=== PATIENT | male | born 1970 | race Caucasian/White ===

== ENCOUNTER 2016-12-19 14:02 | Inpatient (IN) | payer OTHER ==
--- NOTE | 2016-12-19 14:44 | ED ---
Recheck HPI <Jesus Rothman - Last Filed: 12/19/16 16:18> - General Source: patient, RN notes reviewed Mode of arrival: ambulatory Limitations: no limitations <Mila Moore - Last Filed: 12/19/16 20:21> - General Chief Complaint: Recheck/Abnormal Lab/Rx Stated Complaint: insect bites infection Time Seen by Provider: 12/19/16 14:14 - History of Present Illness Initial Comments: Patient is a 46-year-old male presents to the emergency room for evaluation left lower abdomen abscess. Patient states he's power washing his deck about a week ago he was bit by multiple spiders. Patient states she has spider bite on his left thigh, right knee, right upper abdomen and left lower abdomen. Patient states that he followed up with his primary care provider who had him follow-up with Dr. Bay. Patient states he went to Dr. Bay's office on Sunday where he had most of the wounds incised and drained. Patient states the largest bite was on his left lower abdomen. Patient states he's been placed on extra strength Bactrim. Patient states he has a follow-up appointment with Dr. Bay tomorrow. Patient states when he woke up this morning he was feeling nauseous, feverish and not himself. Patient states that the abscess on his left lower abdomen is still continuing to drain pus and having increasing pain. (Mila Moore) - Related Data Home Medications Medication Instructions Recorded Confirmed Lisinopril [Prinivil] 10 mg PO DAILY 12/19/16 12/19/16 Multivitamins, Thera [Multivitamin 1 tab PO DAILY 12/19/16 12/19/16 (formulary)] [place]-3/Dha/Epa/Fish Oil [Fish Oil 2 cap PO DAILY 12/19/16 12/19/16 1,000 mg Softgel] Sulfamethox-Tmp 800-160Mg [Bactrim 2 tab PO Q12HR 12/19/16 12/19/16 DS 800-160 mg] Allergies Allergy/AdvReac Type Severity Reaction Status Date / Time No Known Allergies Allergy Verified 12/19/16 14:54 Review of Systems ROS Other: All systems not noted in ROS Statement are negative. <Jesus Rothman - Last Filed: 12/19/16 16:18> ROS Other: All systems not noted in ROS Statement are negative. <Mila Moore - Last Filed: 12/19/16 20:21> ROS Statement: Those systems with pertinent positive or pertinent negative responses have been documented in the HPI. Past Medical History Past Medical History: Hypertension History of Any Multi-Drug Resistant Organisms: None Reported Past Surgical History: No Surgical Hx Reported Past Psychological History: No Psychological Hx Reported Smoking Status: Never smoker Past Alcohol Use History: Occasional Past Drug Use History: None Reported - Past Family History Father Additional Family Medical History / Comment(s): FROM LUNG DISEASE Mother Family Medical History: Cancer Additional Family Medical History / Comment(s): -LEUKEMIA <Mila Moore - Last Filed: 12/19/16 20:21> General Exam <Jesus Rothman - Last Filed: 12/19/16 16:18> Limitations: no limitations General appearance: alert, in no apparent distress Head exam: Present: atraumatic, normocephalic, normal inspection Eye exam: Present: normal appearance ENT exam: Present: normal exam Neck exam: Present: normal inspection Respiratory exam: Present: normal lung sounds bilaterally. Absent: respiratory distress Cardiovascular Exam: Present: regular rate, normal rhythm, normal heart sounds Extremities exam: Present: normal inspection Back exam: Present: normal inspection Neurological exam: Present: alert, oriented X3, CN II-XII intact, normal gait Skin exam: Present: other (Healing lesions drained spider bites over the right medial knee, left upper thigh. Healing drained abscess over her right upper abdomen. Large open abscess over left lower abdomen with pus drainage and surrounding erythema.) <Mila Moore - Last Filed: 12/19/16 20:21> - General Exam Comments Initial Comments: Sitting in exam room, no acute distress. (Mila Moore) Medical Decision Making - Lab Data Result diagrams: 12/19/16 14:52 12/19/16 14:52 <Jesus Rothman - Last Filed: 12/19/16 16:18> - Lab Data Result diagrams: 12/19/16 14:52 12/19/16 14:52 <Mila Moore - Last Filed: 12/19/16 20:21> - Medical Decision Making The patient was seen and examined. All diagnostics were reviewed. Case is discussed with Dr. Bay and he is agreeable to admission with Dr. Courtney to consult. Case is discussed with the PA and agree with the findings as documented. (Jesus Rothman) - Lab Data Lab Results 12/19/16 12/19/16 12/19/16 Range/Units 14:52 14:52 14:52 WBC 8.9 (3.8-10.6) k/uL RBC 5.35 (4.30-5.90) m/uL Hgb 15.7 (13.0-17.5) gm/dL Hct 44.3 (39.0-53.0) % MCV 82.8 (80.0-100.0) fL MCH 29.3 (25.0-35.0) pg MCHC 35.4 (31.0-37.0) g/dL RDW 12.3 (11.5-15.5) % Plt Count 273 (150-450) k/uL Neutrophils % 86 % Lymphocytes % 3 % Monocytes % 8 % Eosinophils % 1 % Basophils % 1 % Neutrophils # 7.7 (1.3-7.7) k/uL Lymphocytes # 0.3 L (1.0-4.8) k/uL Monocytes # 0.7 (0-1.0) k/uL Eosinophils # 0.1 (0-0.7) k/uL Basophils # 0.1 (0-0.2) k/uL Sodium 136 L (137-145) mmol/L Potassium 4.6 (3.5-5.1) mmol/L Chloride 101 (98-107) mmol/L Carbon Dioxide 20 L (22-30) mmol/L Anion Gap 15 mmol/L BUN 17 (9-20) mg/dL Creatinine 1.00 (0.66-1.25) mg/dL Est GFR (MDRD) Af Amer >60 (>60 ml/min/1.73 sqM) Est GFR (MDRD) Non-Af >60 (>60 ml/min/1.73 sqM) Glucose 100 H (74-99) mg/dL Plasma Lactic Acid Marvel 1.8 (0.7-2.0) mmol/L Calcium 10.0 (8.4-10.2) mg/dL Total Bilirubin 0.5 (0.2-1.3) mg/dL AST 30 (17-59) U/L ALT 50 (21-72) U/L Alkaline Phosphatase 82 (38-126) U/L Total Protein 7.8 (6.3-8.2) g/dL Albumin 4.6 (3.5-5.0) g/dL Disposition <Jesus Rothman - Last Filed: 12/19/16 16:18> Decision Date: 12/19/16 <Mila Moore - Last Filed: 12/19/16 20:21> Clinical Impression: Failure of outpatient treatment, Abdominal abscess Disposition: ADMITTED IP TO THIS HOSP Condition: Stable
[2016-12-19 15:21] LABS: Basophils # (A) 0.1 k/uL (0-0.2); Basophils % (A) 1 %; CH 30.1; CHCM 36.4; Eosinophils # (A) 0.1 k/uL (0-0.7); Eosinophils % (A) 1 %; HCT 44.3 % (39.0-53.0); HDW 2.75; HGB 15.7 gm/dL (13.0-17.5); Luc # (Auto) 0.16; Luc % (Auto) 2; Lymphocytes # (A) 0.3 k/uL (1.0-4.8); Lymphocytes % (A) 3 %; MCH 29.3 pg (25.0-35.0); MCHC 35.4 g/dL (31.0-37.0); MCV 82.8 fL (80.0-100.0); Mean Platelet Volume 6.5; Monocytes # (A) 0.7 k/uL (0-1.0); Monocytes % (A) 8 %; Neutrophils # (A) 7.7 k/uL (1.3-7.7); Neutrophils % (A) 86 %; RBC 5.35 m/uL (4.30-5.90); RDW 12.3 % (11.5-15.5); WBC 8.9 k/uL (3.8-10.6); WBC (Perox) 9.31
[2016-12-19 15:22] LABS: ALT 50 U/L (21-72); AST 30 U/L (17-59); Alkaline Phosphatase 82 U/L (38-126); Anion Gap 15 mmol/L; Blood Urea Nitrogen 17 mg/dL (9-20); Carbon Dioxide 20 mmol/L (22-30); Chloride 101 mmol/L (98-107); Glucose 100 mg/dL (74-99); Non-African American GFR(MDRD) >60 (>60 ml/min/1.73 sqM); Potassium 4.6 mmol/L (3.5-5.1); Sodium 136 mmol/L (137-145); Total Bilirubin 0.5 mg/dL (0.2-1.3); Total Protein 7.8 g/dL (6.3-8.2)
[2016-12-19] MEDS ORDERED: NALOXONE 0.4 MG/ML 1 ML VIAL IV PRN (16:21)
[2016-12-19] MEDS ORDERED: ONDANSETRON 4 MG/2 ML VIAL IVP PRN (16:21)
[2016-12-19] MEDS ORDERED: MORPHINE SULFATE 4 MG/ML SYRINGE IV PRN (16:21)
[2016-12-19] MEDS ORDERED: IV VANCOMYCIN PER PHARMACY 1 EACH MISC MISCELLANE PRN (16:24)
[2016-12-19] MEDS ORDERED: AMPICILLIN-SULBACTAM 3 GM in SODIUM CHLORIDE 0.9% 100 ML IVPB STA (16:26)
[2016-12-19] MEDS: SODIUM CHLORIDE 0.9% 1,000 ML IV SCH (16:39)
[2016-12-19] MEDS ORDERED: VANCOMYCIN 2,000 MG in SODIUM CHLORIDE 0.9% 500 ML IVPB ONE (17:00)
[2016-12-19] MEDS: KETOROLAC 30 MG/ML 1 ML VIAL IVP PRN (18:32)
[2016-12-19] MEDS: ceFAZolin 2 GM in SODIUM CHLORIDE 0.9% 100 ML IVPB SCH (22:36)
[2016-12-19] MEDS: VANCOMYCIN 1,750 MG in SODIUM CHLORIDE 0.9% 250 ML IVPB SCH (23:58)
[2016-12-20] MEDS: SODIUM CHLORIDE 0.9% 1,000 ML IV SCH ×3 (03:56→21:12)
[2016-12-20] MEDS: ceFAZolin 2 GM in SODIUM CHLORIDE 0.9% 100 ML IVPB SCH ×4 (03:58→21:11)
[2016-12-20] MEDS: LISINOPRIL 10 MG TAB PO SCH (08:56)
--- NOTE | 2016-12-20 09:34 | P.GSHP ---
History of Present Illness H&P Date: 12/20/16 Chief Complaint: Abscess Patient is well-known to our service. He was seen in the office last week. He thought that he suffered from a spider bite while washing his outdoor deck. He had read tender nodular areas involving the right abdomen, left abdomen, and bilateral lower extremities. The left lower abdominal wall area was the most impressive. In the office and incision and drainage was performed of the left lower abdominal wall, the right abdominal wall, and the left thigh abscess. Cultures were taken and these revealed staph aureus. He had already been taking Bactrim. Apparently over the weekend he experienced more malaise and some fevers. The left lower abdominal wall site was not improving to the degree that the other 2 sites were. He came to the hospital yesterday. He had a low-grade fever. His white blood cell count was normal. He was admitted for IV antibiotics. Consultation to Dr. Courtney is pending at this time. He does state he feels better today than he did yesterday. - Review of Systems Comment: The patient denies any acute changes in his vision or hearing, no dysphagia or odynophagia, no chest pain or shortness of breath, no dysuria or hematuria, no headache, no runny nose, no rectal bleeding or melena, no unexplained weight loss Past Medical History Past Medical History: Hypertension History of Any Multi-Drug Resistant Organisms: None Reported Past Surgical History: No Surgical Hx Reported Additional Past Surgical History / Comment(s): LT CHEST BENIGN MASS REMOVED, LACERATION TO SCALP/SUTURED(NO SX) Past Anesthesia/Blood Transfusion Reactions: Motion Sickness Past Psychological History: No Psychological Hx Reported Additional Psychological History / Comment(s): 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 PT SERVED IN THE [employer] AND IS IN THE [employer]. PT LIVES WITH HIS AND 2 CHLDREN. 1 DOG, 2 CATS. NO OUTSIDE SERVICES AND NO MEDICAL EQUIPMENT. Smoking Status: Never smoker Past Alcohol Use History: Occasional Past Drug Use History: None Reported - Past Family History Father Additional Family Medical History / Comment(s): FROM LUNG DISEASE Mother Family Medical History: Cancer Additional Family Medical History / Comment(s): -LEUKEMIA Medications and Allergies Home Medications Medication Instructions Recorded Confirmed Type Lisinopril [Prinivil] 10 mg PO DAILY 12/19/16 12/19/16 History Multivitamins, Thera [Multivitamin 1 tab PO DAILY 12/19/16 12/19/16 History (formulary)] [place]-3/Dha/Epa/Fish Oil [Fish Oil 2 cap PO DAILY 12/19/16 12/19/16 History 1,000 mg Softgel] Sulfamethox-Tmp 800-160Mg [Bactrim 2 tab PO Q12HR 12/19/16 12/19/16 History DS 800-160 mg] Allergies Allergy/AdvReac Type Severity Reaction Status Date / Time No Known Allergies Allergy Verified 12/19/16 14:54 Surgical - Exam Vital Signs Temp Pulse Resp BP Pulse Ox 98.8 F 108 H 20 144/86 98 12/19/16 14:04 12/19/16 14:04 12/19/16 14:04 12/19/16 14:04 12/19/16 14:04 Physical exam: General: Well-developed, well-nourished HEENT: Normocephalic, sclerae nonicteric Abdomen: Left lower abdominal wall with a erythematous region that is mildly tender, some fluctuance noted, 2 openings in the skin are identified with some relatively ischemic appearing fat noted, right abdominal wall with decreased erythema and minimal tenderness at that location, no drainage from that location Extremities: Left thigh proximally was some induration, no definite fluctuance, in improved erythema Neuro: Alert and oriented Results - Labs 12/19/16 14:52 12/19/16 14:52 Abnormal Lab Results - Last 24 Hours (Table) 12/19/16 12/19/16 Range/Units 14:52 14:52 Lymphocytes # 0.3 L (1.0-4.8) k/uL Sodium 136 L (137-145) mmol/L Carbon Dioxide 20 L (22-30) mmol/L Glucose 100 H (74-99) mg/dL Diabetes panel 12/19/16 Range/Units 14:52 Sodium 136 L (137-145) mmol/L Potassium 4.6 (3.5-5.1) mmol/L Chloride 101 (98-107) mmol/L Carbon Dioxide 20 L (22-30) mmol/L BUN 17 (9-20) mg/dL Creatinine 1.00 (0.66-1.25) mg/dL Glucose 100 H (74-99) mg/dL Calcium 10.0 (8.4-10.2) mg/dL AST 30 (17-59) U/L ALT 50 (21-72) U/L Alkaline Phosphatase 82 (38-126) U/L Total Protein 7.8 (6.3-8.2) g/dL Albumin 4.6 (3.5-5.0) g/dL Calcium panel 12/19/16 Range/Units 14:52 Calcium 10.0 (8.4-10.2) mg/dL Albumin 4.6 (3.5-5.0) g/dL Pituitary panel 12/19/16 Range/Units 14:52 Sodium 136 L (137-145) mmol/L Potassium 4.6 (3.5-5.1) mmol/L Chloride 101 (98-107) mmol/L Carbon Dioxide 20 L (22-30) mmol/L BUN 17 (9-20) mg/dL Creatinine 1.00 (0.66-1.25) mg/dL Glucose 100 H (74-99) mg/dL Calcium 10.0 (8.4-10.2) mg/dL Adrenal panel 12/19/16 Range/Units 14:52 Sodium 136 L (137-145) mmol/L Potassium 4.6 (3.5-5.1) mmol/L Chloride 101 (98-107) mmol/L Carbon Dioxide 20 L (22-30) mmol/L BUN 17 (9-20) mg/dL Creatinine 1.00 (0.66-1.25) mg/dL Glucose 100 H (74-99) mg/dL Calcium 10.0 (8.4-10.2) mg/dL Total Bilirubin 0.5 (0.2-1.3) mg/dL AST 30 (17-59) U/L ALT 50 (21-72) U/L Alkaline Phosphatase 82 (38-126) U/L Total Protein 7.8 (6.3-8.2) g/dL Albumin 4.6 (3.5-5.0) g/dL Assessment and Plan (1) Abdominal wall abscess Narrative/Plan: The patient I discussed the options. We'll proceed with incision and drainage of the left lower quadrant abdominal wall abscess. During the operation I will cleanse the right-sided abdominal wall abscess site and the left thigh abscess site. We may perform a simple incision and drainage at those locations as well. A debridement of the left lower abdominal wall site will take place. Proper packing will be performed. The risks of bleeding, infection, possible need for additional procedure, poor wound healing, and scarring were discussed. He understands and wishes to proceed. Status: Acute
[2016-12-20 09:40] LABS: ALT 35 U/L (21-72); AST 22 U/L (17-59); Alkaline Phosphatase 64 U/L (38-126); Anion Gap 11 mmol/L; Blood Urea Nitrogen 23 mg/dL (9-20); Calcium 8.9 mg/dL (8.4-10.2); Carbon Dioxide 24 mmol/L (22-30); Chloride 102 mmol/L (98-107); Glucose 116 mg/dL (74-99); Non-African American GFR(MDRD) >60 (>60 ml/min/1.73 sqM); Potassium 4.9 mmol/L (3.5-5.1); Sodium 137 mmol/L (137-145); Total Bilirubin 0.6 mg/dL (0.2-1.3); Total Protein 6.8 g/dL (6.3-8.2)
--- NOTE | 2016-12-20 09:57 | P.CONS ---
History of Present Illness - Reason for Consult Consult date: 12/20/16 abscess - History of Present Illness This is a 46-year-old male who gives history that on the weekend of December 09, he was power washing his tach and he remembers seen spiders and he thinks he may have disturbed Anastas spiders. He does not recall ever being bitten by a spider but when he finished and went in the house at the end of the day, his 's estimate the rash was from and they assumed it was from the spiders. This was located on the upper legs bilaterally and abdomen. He went to see his primary care physician, Dr. Sheikh, and was placed on Bactrim double strength 2 tablets twice daily which she states he has been taking as directed. He saw Dr. li on , December 14, and underwent I&D and was continued on Bactrim. He states that yesterday he was not feeling well and he started having fever and chills and nausea. He was working in [employer] and his coworker drove him back home and he came right into the hospital for evaluation. He was found awake, 8.9, GFR is greater than 60, albumin 4.6. Blood cultures status received. He received 1 dose of Unasyn in the emergency center and then was started on cefazolin and vancomycin. His wound culture from December 14 showing MSSA. He states that he is feeling much better in general tends he was admitted. He has been seen by Dr. li with plan for I&D today in the OR. Review of Systems All systems: negative Constitutional: Reports chills, Reports fatigue, Reports fever, Reports lethargy Eyes: denies blurred vision, denies pain Ears, nose, mouth and throat: Denies headache, Denies sore throat Cardiovascular: Denies chest pain, Denies shortness of breath Respiratory: Denies cough Gastrointestinal: Reports nausea, Denies abdominal pain, Denies diarrhea, Denies vomiting Musculoskeletal: Denies myalgias Integumentary: Reports wounds, Denies pruritus, Denies rash Neurological: Denies numbness, Denies weakness Psychiatric: Denies anxiety, Denies depression Endocrine: Denies fatigue, Denies weight change Past Medical History Past Medical History: Hypertension History of Any Multi-Drug Resistant Organisms: None Reported Past Surgical History: No Surgical Hx Reported Additional Past Surgical History / Comment(s): LT CHEST BENIGN MASS REMOVED, LACERATION TO SCALP/SUTURED(NO SX), I&D of abdominal soft tissue abscesses Past Anesthesia/Blood Transfusion Reactions: Motion Sickness Past Psychological History: No Psychological Hx Reported Additional Psychological History / Comment(s): 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 PT SERVED IN THE [employer] AND SERVED 2 TOURS WITH [employer] IN [place]. HE IS NOW IN THE [employer]. PT LIVES WITH HIS AND 2 CHLDREN. 1 DOG, 2 CATS. NO OUTSIDE SERVICES AND NO MEDICAL EQUIPMENT. They camp frequently. Smoking Status: Never smoker Past Alcohol Use History: Occasional Past Drug Use History: None Reported - Past Family History Father Additional Family Medical History / Comment(s): FROM LUNG DISEASE Mother Family Medical History: Cancer Additional Family Medical History / Comment(s): -LEUKEMIA Medications and Allergies Home Medications Medication Instructions Recorded Confirmed Type Lisinopril [Prinivil] 10 mg PO DAILY 12/19/16 12/19/16 History Multivitamins, Thera [Multivitamin 1 tab PO DAILY 12/19/16 12/19/16 History (formulary)] [place]-3/Dha/Epa/Fish Oil [Fish Oil 2 cap PO DAILY 12/19/16 12/19/16 History 1,000 mg Softgel] Sulfamethox-Tmp 800-160Mg [Bactrim 2 tab PO Q12HR 12/19/16 12/19/16 History DS 800-160 mg] Allergies Allergy/AdvReac Type Severity Reaction Status Date / Time No Known Allergies Allergy Verified 12/19/16 14:54 Physical Exam Vitals: Vital Signs Temp Pulse Pulse Resp BP BP Pulse Ox 12/20/16 07:00 99.4 F 81 18 121/65 93 L 12/19/16 23:00 97.8 F 88 16 116/56 92 L 12/19/16 17:29 98.9 F 108 H 19 147/81 94 L 12/19/16 16:43 100.4 F H 99 18 149/82 94 L 12/19/16 14:04 98.8 F 108 H 20 144/86 98 Intake and Output 12/19/16 12/20/16 12/20/16 22:59 06:59 14:59 Intake Total 100 0 Balance 100 0 Intake: Oral 100 0 Other: Voiding Method Toilet # Voids 2 1 Gen: This is a 46-year-old male. He is laying in bed and appears to be in no acute distress. HEENT: Head is atraumatic, normocephalic. Pupils equal, round. Sclerae is anicteric. NECK: Supple. No JVD. No lymphadenopathy. No thyromegaly. LUNGS: Clear to auscultation. No wheezes or rhonchi. No intercostal retractions. HEART: Regular rate and rhythm. No murmur. ABDOMEN: Soft. Bowel sounds are present. Abscess to the right lower quadrant with sanguinous drainage with surrounding erythema and edema and tenderness. Abscess to the right lower quadrant with no active drainage and surrounding erythema. Wound to the left upper thigh laterally with serosanguineous drainage , surrounding erythema, mild edema and tenderness. EXTREMITIES: No pedal edema. No calf tenderness. Dorsalis pedis +2 bilaterally there is several healing wounds to the upper or lower extremities with no surrounding erythema and no active drainage. NEUROLOGICAL: Patient is awake, alert and oriented x3. Cranial nerves 2 through 12 are grossly intact. Results Results: Laboratory Results WBC 8.9 k/uL (3.8-10.6) 12/19/16 14:52 RBC 5.35 m/uL (4.30-5.90) 12/19/16 14:52 Hgb 15.7 gm/dL (13.0-17.5) 12/19/16 14:52 Hct 44.3 % (39.0-53.0) 12/19/16 14:52 MCV 82.8 fL (80.0-100.0) 12/19/16 14:52 MCH 29.3 pg (25.0-35.0) 12/19/16 14:52 MCHC 35.4 g/dL (31.0-37.0) 12/19/16 14:52 RDW 12.3 % (11.5-15.5) 12/19/16 14:52 Plt Count 273 k/uL (150-450) 12/19/16 14:52 Neutrophils % 86 % 12/19/16 14:52 Lymphocytes % 3 % 12/19/16 14:52 Monocytes % 8 % 12/19/16 14:52 Eosinophils % 1 % 12/19/16 14:52 Basophils % 1 % 12/19/16 14:52 Neutrophils # 7.7 k/uL (1.3-7.7) 12/19/16 14:52 Lymphocytes # 0.3 k/uL (1.0-4.8) L 12/19/16 14:52 Monocytes # 0.7 k/uL (0-1.0) 12/19/16 14:52 Eosinophils # 0.1 k/uL (0-0.7) 12/19/16 14:52 Basophils # 0.1 k/uL (0-0.2) 12/19/16 14:52 Sodium 137 mmol/L (137-145) 12/20/16 08:28 Potassium 4.9 mmol/L (3.5-5.1) 12/20/16 08:28 Chloride 102 mmol/L (98-107) 12/20/16 08:28 Carbon Dioxide 24 mmol/L (22-30) 12/20/16 08:28 Anion Gap 11 mmol/L 12/20/16 08:28 BUN 23 mg/dL (9-20) H 12/20/16 08:28 Creatinine 1.12 mg/dL (0.66-1.25) 12/20/16 08:28 Est GFR (MDRD) Af Amer >60 (>60 ml/min/1.73 sqM) 12/20/16 08:28 Est GFR (MDRD) Non-Af >60 (>60 ml/min/1.73 sqM) 12/20/16 08:28 Glucose 116 mg/dL (74-99) H 12/20/16 08:28 Plasma Lactic Acid Marvel 1.8 mmol/L (0.7-2.0) 12/19/16 14:52 Calcium 8.9 mg/dL (8.4-10.2) 12/20/16 08:28 Total Bilirubin 0.6 mg/dL (0.2-1.3) 12/20/16 08:28 AST 22 U/L (17-59) 12/20/16 08:28 ALT 35 U/L (21-72) 12/20/16 08:28 Alkaline Phosphatase 64 U/L (38-126) 12/20/16 08:28 Total Protein 6.8 g/dL (6.3-8.2) 12/20/16 08:28 Albumin 3.8 g/dL (3.5-5.0) 12/20/16 08:28 CBC & Chem 7: 12/19/16 14:52 12/20/16 08:28 Labs: Abnormal Lab Results - Last 24 Hours (Table) 12/19/16 12/19/16 Range/Units 14:52 14:52 Lymphocytes # 0.3 L (1.0-4.8) k/uL Sodium 136 L (137-145) mmol/L Carbon Dioxide 20 L (22-30) mmol/L Glucose 100 H (74-99) mg/dL Assessment and Plan Plan: This is a 46-year-old male who presents to the hospital with abscesses of the skin and soft tissue of the abdomen that failed outpatient treatment. He has been seen by Dr. Glass with plan for I&D today. He is currently on antibiotics in form of cefazolin and vancomycin. Outpatient wound culture from December 14 is positive for MSSA. Local wound care will be addressed. Further recommendations as patient progresses. The above dictated assessment and findings were discussed with Dr. Courtney. The impression and plan of care have been directed as dictated. Yanni Guerra nurse practitioner acting as scribe for Dr. Courtney.
[2016-12-20 10:27] LABS: CHCM 34.5; HCT 42.3 % (39.0-53.0); HDW 2.45; HGB 14.1 gm/dL (13.0-17.5); Immature Gran Flag Slight; MCH 29.1 pg (25.0-35.0); MCHC 33.3 g/dL (31.0-37.0); MCV 87.3 fL (80.0-100.0); RBC 4.85 m/uL (4.30-5.90); RDW 12.8 % (11.5-15.5); WBC 4.8 k/uL (3.8-10.6)
[2016-12-20] MEDS: VANCOMYCIN 1,750 MG in SODIUM CHLORIDE 0.9% 250 ML IVPB SCH ×2 (11:34→13:52)
[2016-12-20] MEDS ORDERED: DEXAMETHASONE SOD PHOS (MDV) 100 MG/10 ML VIAL IV ONE (12:02)
[2016-12-20] MEDS ORDERED: ONDANSETRON 4 MG/2 ML VIAL IVP ONE (12:02)
[2016-12-20] MEDS ORDERED: SCOPOLAMINE 1.5MG/72HR PATCH TRANSDERM ONE (12:03)
[2016-12-20] MEDS ORDERED: LACTATED RINGERS 1,000 ML IV ONE (12:08)
[2016-12-20] MEDS ORDERED: HEPARIN SODIUM,PORCINE 5,000 UNIT/ML 1 ML VIAL SQ ONE (12:09)
[2016-12-20] MEDS ORDERED: LIDOCAINE 1% INJ 10MG/ML (20 ML MDV) ONE (12:22)
[2016-12-20] MEDS ORDERED: fentaNYL (PF) 50 MCG/ML 2 ML AMP ONE (12:22)
[2016-12-20] MEDS ORDERED: MIDAZOLAM 2 MG/2 ML VIAL ONE (12:22)
[2016-12-20] MEDS ORDERED: KETOROLAC 30 MG/ML 1 ML VIAL ONE (12:22)
[2016-12-20] MEDS ORDERED: PROPOFOL 10 MG/ML 20 ML VIAL IV ONE (12:22)
[2016-12-20] MEDS ORDERED: BUPIVACAIN-EPI 0.25%-1:200,000 30 ML VIAL SQ ONE (12:45)
[2016-12-20] MEDS ORDERED: BACITRACIN OINT 1 EACH PACKET TOPICAL ONE (12:53)
--- NOTE | 2016-12-20 13:02 | P.PCN ---
Date of Procedure: 12/20/16 Preoperative Diagnosis: Postoperative Diagnosis: Procedure(s) Performed: PREOPERATIVE DIAGNOSIS: Abdominal wall abscess POSTOPERATIVE DIAGNOSIS: Same PROCEDURE: Incision drainage and debridement of left lower abdominal wall abscess SURGEON: Phu EBL: Minimal ANESTHESIA: General COMPLICATIONS: None OPERATIVE PROCEDURE: Patient was placed never table in supine position. The patient was placed under general anesthesia. The right abdominal and left thigh wounds were addressed. These were cleansed. These appeared to be sufficiently drained. Only small wounds were present there with no evidence of purulence or fluctuance. The left lower abdominal wound was prepped and draped in usual sterile fashion. An elliptical incision was made in the skin excising both the necrotic skin and this necrotic subcutaneous fat. Healthy fatty tissue was identified circumferentially. All these were taken. Wound was repacked with iodoform gauze. A sterile dressing was applied. DISPOSITION: Stable to recovery room Implants: Indications for Procedure: Operative Findings: Description of Procedure:
[2016-12-20 14:46] LABS: Add Differential Manual Differential
[2016-12-20 15:02] LABS: Myelocytes % 1.5 %; Nucleated Red Blood Cells 0 /100 WBC (0-0); Total Cells Counted 200
[2016-12-20 15:03] LABS: Manual Review Performed; RBC Morphology Normal
[2016-12-20 15:05] LABS: Large Platelets Present
--- NOTE | 2016-12-20 21:08 | P.CON ---
Consult Note - . Consult date: 12/20/16 Assessment/Plan:: This is a 46-year-old male who gives history that on the weekend of December 09, he was power washing his tach and he remembers seen spiders and he thinks he may have disturbed Anastas spiders. He does not recall ever being bitten by a spider but when he finished and went in the house at the end of the day, his 's estimate the rash was from and they assumed it was from the spiders. This was located on the upper legs bilaterally and abdomen. He went to see his primary care physician, Dr. Sheikh, and was placed on Bactrim double strength 2 tablets twice daily which she states he has been taking as directed. He saw Dr. li on , December 14, and underwent I&D and was continued on Bactrim. He states that yesterday he was not feeling well and he started having fever and chills and nausea. He was working in [employer] and his coworker drove him back home and he came right into the hospital for evaluation. He was found awake, 8.9, GFR is greater than 60, albumin 4.6. Blood cultures status received. He received 1 dose of Unasyn in the emergency center and then was started on cefazolin and vancomycin. His wound culture from December 14 showing MSSA. He states that he is feeling much better in general tends he was admitted. He has been seen by Dr. li with plan for I&D today in the OR. please see the consult note as dictated by nurse practitioner Mrs. Yanni Guerra. To clarify the patient was power washing his deck. He was actively doing this process for about 4 hours. He had a T-shirt shorts in boots. He was quite saturated by the time he was complete. He routinely would hold the wind up against his abdomen while he was washing. He certainly sprayed away much dirt and debris as well as outside spiders. He does not recall specifically having spider bites however. At this time we discussed that his skin became injured from the process. Which allowed the staphylococcal infection to take hold and abdominal wall and then transferred onto the anterior aspects of his thighs while he showered. He was worried about brown recluse spiders. We discussed that these are not routinely found in [place]. And certainly wouldn't be out during the day while he has power washing. There are large spider and her weight would also be painful, and he has no recollection of this either. No other family members have any difficulty with spider bites at this time. We discussed that it is very common that patients who complained of spider bites simply have staphylococcal infections. Fortunately he does not have MRSA. As with high-dose cefazolin is being utilizes an antimotility improved and has surgical incision and drainage. Cultures are in process especially blood cultures then once negative we'll be able to have a plan for his outpatient course of antibiotic therapy course hopefully will be oral once he's been incised and drained.routine cleaning also services as suggested to his who is somewhat anxious. We discussed the drainage is what would be infectious. Local wound care will be determined once the sites can be evaluated with surgery.he fortunately is notvery toxic despite what appears to be somewhat extensive infectious process. We shall monitor. Agree with evaluation, assessment and plan as dictated by nurse practitioner Mrs. Yanni Guerra.
[2016-12-20] MEDS: KETOROLAC 30 MG/ML 1 ML VIAL IVP PRN (21:21)
[2016-12-20 23:47] LABS: Hemoglobin A1C 5.7 % (4.2-6.1)
[2016-12-21] MEDS: ceFAZolin 2 GM in SODIUM CHLORIDE 0.9% 100 ML IVPB SCH (06:13)
[2016-12-21] MEDS: LISINOPRIL 10 MG TAB PO SCH (08:50)
[2016-12-21] MEDS: SODIUM CHLORIDE 0.9% 1,000 ML IV SCH ×2 (08:51→18:39)
[2016-12-21] MEDS: KETOROLAC 30 MG/ML 1 ML VIAL IVP PRN ×2 (09:17→17:18)
[2016-12-21] MEDS ORDERED: VANCOMYCIN TROUGH DUE 1 EACH MISC MISCELLANE ONE (11:00)
[2016-12-21] MEDS: diphenhydrAMINE 50 MG CAP PO SCH ×3 (12:31→21:28)
[2016-12-21] MEDS: DAPTOmycin 500 MG in SODIUM CHLORIDE 0.9% 50 ML IV SCH (12:31)
[2016-12-21] MEDS: MULTIVITAMINS, THERA 1 EACH TAB PO SCH (12:31)
--- NOTE | 2016-12-21 14:55 | P.PN ---
Subjective Principal diagnosis: Abdominal wall abscess Patient doing better today. He did have a reaction to his antibiotic with redness and rash. His pain is improved. Cultures are still pending. He is afebrile. Objective - Vital Signs Vital signs: Vital Signs Temp 97.1 F L 12/21/16 07:00 Pulse 57 L 12/21/16 07:00 Resp 16 12/21/16 07:00 BP 113/62 12/21/16 07:00 Pulse Ox 97 12/21/16 07:00 Intake & Output 12/20/16 12/21/16 12/21/16 18:59 06:59 18:59 Intake Total 2050 200 Output Total 1 Balance 2048 200 Intake: IV 2050 Sodium Chloride 0.9% 1, 800 000 ml @ 100 mls/hr IV . Q10H [facility] Rx#:[id number] Vancomycin 1,750 mg In 250 Sodium Chloride 0.9% 250 ml @ 125 mls/hr IVPB Q12H [facility] Rx#:[id number] ceFAZolin 2 gm In Sodium 100 Chloride 0.9% 100 ml @ 100 mls/hr IVPB Q8H [facility] Rx#:[id number] Oral 200 Output: Estimated Blood Loss 1 Other: # Voids 3 2 1 - Exam Abdomen: Soft, nondistended, erythema around the left lower quadrant incision site slightly diminished, tenderness improved, the right sided and left thigh abscess sites are improved as well - Labs CBC & Chem 7: 12/20/16 08:28 12/20/16 08:28 Labs: Abnormal Lab Results - Last 24 Hours (Table) 12/20/16 Range/Units 08:28 Lymphocytes # (Manual) 0.6 L (1.0-4.8) k/uL Microbiology - Last 24 Hours (Table) 12/20/16 12:50 Gram Stain - Preliminary Abdomen Wound Culture - Preliminary 12/20/16 12:50 Anaerobic Culture - Preliminary Abdomen 12/19/16 14:52 Blood Culture - Preliminary Blood No Growth after 24 hours Assessment and Plan (1) Abdominal wall abscess Narrative/Plan: Continue IV antibiotics per infectious disease. Continue local wound care. Anticipate probable discharge tomorrow. Status: Acute
[2016-12-22] MEDS: SODIUM CHLORIDE 0.9% 1,000 ML IV SCH ×2 (00:15→16:13)
[2016-12-22 07:24] VITALS: RESP 16
[2016-12-22] MEDS: LISINOPRIL 10 MG TAB PO SCH (08:31)
[2016-12-22] MEDS: diphenhydrAMINE 50 MG CAP PO SCH ×3 (08:31→17:20)
[2016-12-22] MEDS: MULTIVITAMINS, THERA 1 EACH TAB PO SCH (13:53)
[2016-12-22 15:25] VITALS: BP 142/89; PULSE 80; TEMP 99
--- NOTE | 2016-12-22 16:25 | P.DS ---
Providers Date of admission: 12/19/16 16:17 Expected date of discharge: 12/22/16 Attending physician: Jaciel Bay Consults: 12/19/16 16:22 Consult Physician Urgent Consulting Provider: Rik Courtney Consult Reason/Comments: Abdominal abscess Do you want consulting provider notified?: Yes Primary care physician: Liudmila Sheikh - Discharge Diagnosis(es) (1) Abdominal wall abscess Patient was admitted to the hospital with failure of outpatient therapy to treat abdominal wall abscesses and cellulitis. He underwent a wider incision and drainage while here. Cultures were again performed showing MSSA. He was seen in consultation by Dr. Courtney from infectious disease. He is doing much better now. The patient would like to go home today. His wound is healing up properly. Erythema and tenderness are dramatically improved. Plan is for discharge today with antibiotics per infectious disease. Home care is being arranged. The patient will follow up me in the office in 1-2 weeks. Current Visit: Yes Status: Acute Patient Condition at Discharge: Stable Plan - Discharge Summary New Discharge Prescriptions: New Doxycycline Monohydrate [Monodox] 100 mg PO Q12HR #20 cap Continue Lisinopril [Prinivil] 10 mg PO DAILY [place]-3/Dha/Epa/Fish Oil [Fish Oil 1,000 mg Softgel] 2 cap PO DAILY Multivitamins, Thera [Multivitamin (formulary)] 1 tab PO DAILY Discontinued Sulfamethox-Tmp 800-160Mg [Bactrim DS 800-160 mg] 2 tab PO Q12HR Discharge Medication List Lisinopril [Prinivil] 10 mg PO DAILY 12/19/16 [History] Multivitamins, Thera [Multivitamin (formulary)] 1 tab PO DAILY 12/19/16 [History ] [place]-3/Dha/Epa/Fish Oil [Fish Oil 1,000 mg Softgel] 2 cap PO DAILY 12/19/16 [ History] Doxycycline Monohydrate [Monodox] 100 mg PO Q12HR #20 cap 12/22/16 [Rx] Follow up Appointment(s)/Referral(s): Jaciel Bay MD [Medical Doctor] - 12/28/16 9:00 am [facility], [NON-STAFF] - As Needed Liudmila Sheikh MD [Primary Care Provider] - 12/25/16 (Office closed, please call for appointment. ) Patient Instructions/Handouts: Acute Wound Care (DC) Activity/Diet/Wound Care/Special Instructions: Low fat, low salt diet. Activity as tolerated, no heavy lifting over 10 pounds. May shower, no bath or swimming/soaking. May be excused from work from 5-30 thru 6-[address]. Discharge/Stand Alone Forms: Work/School Release Discharge Disposition: HOME WITH HOME HEALTH SERVICES
[2016-12-22] MEDS: DAPTOmycin 500 MG in SODIUM CHLORIDE 0.9% 50 ML IV SCH (17:21)
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
== END 2016-12-22 18:23 | disposition home health service (06) | DRG 571 ==
LOC: EC 14:02 → 4MS4W 16:17
PROVIDERS: ADMIT Surgery; ATTEND Surgery
PROC: 0H97XZZ Drainage of Abdomen Skin, External Approach (ICD-10-PCS; 2016-12-20)
PROC: 0JB80ZZ Excision of Abdomen Subcutaneous Tissue and Fascia, Open Approach (ICD-10-PCS; principal; 2016-12-20 09:55)
DX: L02.211 Cutaneous abscess of abdominal wall (principal); L02.416 Cutaneous abscess of left lower limb; I10 Essential (primary) hypertension; T36.1X5A Adverse effect of cephalosporins and other beta-lactam antibiotics, initial encounter; L27.0 Generalized skin eruption due to drugs and medicaments taken internally; S30.811A Abrasion of abdominal wall, initial encounter; B95.61 Methicillin susceptible Staphylococcus aureus infection as the cause of diseases classified elsewhere; L03.311 Cellulitis of abdominal wall; R50.9 Fever, unspecified; L29.9 Pruritus, unspecified; R53.81 Other malaise; R11.0 Nausea; Z80.6 Family history of leukemia; Z79.899 Other long term (current) drug therapy; Z83.6 Family history of other diseases of the respiratory system; Z87.828 Personal history of other (healed) physical injury and trauma; X58.XXXA Exposure to other specified factors, initial encounter; Y93.H9 Activity, other involving exterior property and land maintenance, building and construction; Y92.017 Garden or yard in single-family (private) house as the place of occurrence of the external cause
CPT/HCPCS: 36415; 80053; 80202; 83036; 83605; 85025; 87040; 87070; 87075; 87205; 88304; 96365; 99284

== ENCOUNTER 2019-01-02 08:23 | Emergency (ER) | payer BC ==
[2019-01-02 08:45] VITALS: BP 128/78; PULSE 63; RESP 18; TEMP 98.5
[2019-01-02] MEDS ORDERED: CYCLOBENZAPRINE 10MG STARTER 3 TAB BTL PO STA (09:30)
[2019-01-02] MEDS ORDERED: KETOROLAC 30 MG/ML 1 ML VIAL IM STA (09:30)
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
== END 2019-01-02 10:34 | disposition home or self-care (01) ==
LOC: EC 08:23
DX: M62.838 Other muscle spasm (principal); M48.02 Spinal stenosis, cervical region; I10 Essential (primary) hypertension; Z79.899 Other long term (current) drug therapy; V43.52XA Car driver injured in collision with other type car in traffic accident, initial encounter; Y92.410 Unspecified street and highway as the place of occurrence of the external cause
CPT/HCPCS: 72040; 99284; 96372; J1885

== ENCOUNTER 2019-10-09 01:41 | Emergency (ER) | payer BC ==
[2019-10-09 01:52] VITALS: TEMP 97.9
[2019-10-09] MEDS ORDERED: FAMOTIDINE 20 MG/2 ML VIAL IV STA (02:32)
--- NOTE | 2019-10-09 02:36 | ED ---
General Adult HPI - General Chief complaint: Chest Pain Stated complaint: Adverse Med Reaction Time Seen by Provider: 10/09/19 01:54 Source: patient Mode of arrival: ambulatory Limitations: no limitations - History of Present Illness Initial comments: Dictation was produced using VI[employer] dictation software. please excuse any grammatical, word or spelling errors. Chief Complaint: 49-year-old male presents with mild chest discomfort, throat numbness 3 hours. History of Present Illness: Patient is a 49-year-old male. He has past medical history of hypertension. He states that he was in bed when he all of a sudden developed what he describes as mild throat numbness. Patient states that earlier this week he was on a flight returning from [place]. He states there was a sick individual that he was sitting next to. He however has not traveled through [place] or [place]. He did have a layover in [place]. Patient has any fevers. He was recently started on Keflex for a wound on his neck. He has an ALLERGY to Bactrim. There is concern by him that he had a ALLERGIC reaction to this medication. Patient denies any constitutional symptoms. No shortness of breath. He did complain of some mild chest discomfort. No radiation, associated diaphoresis or radiation to the chest shows any history of coronary artery disease. The ROS documented in this emergency department record has been reviewed and confirmed by me. Those systems with pertinent positive or negative responses have been documented in the HPI. All other systems are other negative and/or noncontributory. PHYSICAL EXAM: General Impression: Alert and oriented x3, not in acute distress HEENT: Normocephalic atraumatic, extra-ocular movements intact, pupils equal and reactive to light bilaterally, mucous membranes moist. Cardiovascular: Heart regular rate and rhythm, S1&S2 audible, no murmurs, rubs or gallops Chest: Lungs clear to auscultation bilaterally, no rhonchi, no wheeze, no rales Abdomen: Bowel sounds present, abdomen soft, non-tender, non-distended, no organomegaly Musculoskeletal: Pulses present and equal in all extremities, no peripheral edema Motor: no focal deficits noted Neurological: CN II-XII grossly intact, no focal motor or sensory deficits noted Skin: Intact with no visualized rashes Psych: Normal affect and mood ED course: 49-year-old male presents with throat numbness and mild chest discomfort 3 hours. Vital signs upon arrival are within acceptable limits. EKG appears to be benign without any signs of ST elevation ME. Patient's pain is atypical with typical features however there is associated throat symptoms that are poorly suggest that he perhaps had a reaction to Keflex that he is taking for skin infection. Laboratory evaluation obtained. D-dimer 0.4. No suspicion of pulmonary embolus. Troponin negative, brain atrophy peptide is 45. Rest of labs are unremarkable. X-rays nonacute. Patient reevaluated found to be in stable medical condition. He states that his symptoms are much improved. It is difficult to discern whether patient symptoms are secondary to an ALLERGIC type reaction to the Biaxin he is taking or whether it be from some other cause. He does not exhibit any high-risk features. She was given Pepcid. Given recent exposure on domestic travel there is concern that perhaps maybe his symptoms may reflect early Covid 19 however he hasn't had any high-risk exposure. He is told to monitor symptoms and to call his primary care doctor, emergency room or [facility] if he develops fever, cough or shortness of breath. Patient told to dispose of his Keflex medication. Patient given prescription for clindamycin instead. Patient is understandable and agreeable disposition. All questions answered EKG interpretation: Ventricular rate 81, normal sinus rhythm,. Interval and 76, QRS 90, QTC 422. No OR prolongation, no QTC prolongation, no old EKG for comparison. There are T-wave inversions in lead 3 and aVF. The sinuses are nonspecific. - Related Data Home Medications Medication Instructions Recorded Confirmed Lisinopril [Prinivil] 10 mg PO DAILY 12/19/16 12/19/16 Multivitamins, Thera [Multivitamin 1 tab PO DAILY 12/19/16 12/19/16 (formulary)] [place]-3/Dha/Epa/Fish Oil [Fish Oil] 2 cap PO DAILY 12/19/16 12/19/16 Previous Rx's Medication Instructions Recorded Doxycycline Monohydrate [Monodox] 100 mg PO Q12HR #20 cap 12/22/16 Cyclobenzaprine [Flexeril] 10 mg PO TID #20 tab 01/02/19 Ibuprofen [Motrin] 400 mg PO Q4H #20 tab 01/02/19 Clindamycin HCl [Cleocin] 300 mg PO Q6H 5 Days #40 cap 10/09/19 Allergies Allergy/AdvReac Type Severity Reaction Status Date / Time sulfamethoxazole Allergy Rash/Hives Verified 10/09/19 01:52 [From Bactrim] trimethoprim [From Bactrim] Allergy Rash/Hives Verified 10/09/19 01:52 Review of Systems ROS Statement: Those systems with pertinent positive or pertinent negative responses have been documented in the HPI. ROS Other: All systems not noted in ROS Statement are negative. Past Medical History Past Medical History: Hypertension History of Any Multi-Drug Resistant Organisms: None Reported Past Surgical History: No Surgical Hx Reported Additional Past Surgical History / Comment(s): LT CHEST BENIGN MASS REMOVED, LACERATION TO SCALP/SUTURED(NO SX), I&D of abdominal soft tissue abscesses Past Anesthesia/Blood Transfusion Reactions: Motion Sickness Past Psychological History: No Psychological Hx Reported Smoking Status: Never smoker Past Alcohol Use History: Occasional Past Drug Use History: None Reported - Past Family History Father Additional Family Medical History / Comment(s): FROM LUNG DISEASE Mother Family Medical History: Cancer Additional Family Medical History / Comment(s): -LEUKEMIA General Exam Limitations: no limitations Course Vital Signs 10/09/19 10/09/19 10/09/19 01:44 02:30 03:10 Temperature 97.9 F Pulse Rate 84 73 74 Respiratory 18 18 19 Rate Blood Pressure 161/103 162/92 129/88 O2 Sat by Pulse 97 96 98 Oximetry Medical Decision Making - Lab Data Result diagrams: 10/09/19 02:24 10/09/19 02:24 Lab Results 10/09/19 10/09/19 10/09/19 Range/Units 02:24 02:24 02:24 WBC 9.5 (3.8-10.6) k/uL RBC 4.84 (4.30-5.90) m/uL Hgb 14.3 (13.0-17.5) gm/dL Hct 40.1 (39.0-53.0) % MCV 82.9 (80.0-100.0) fL MCH 29.5 (25.0-35.0) pg MCHC 35.6 (31.0-37.0) g/dL RDW 12.4 (11.5-15.5) % Plt Count 287 (150-450) k/uL Neutrophils % 59 % Lymphocytes % 26 % Monocytes % 8 % Eosinophils % 4 % Basophils % 1 % Neutrophils # 5.6 (1.3-7.7) k/uL Lymphocytes # 2.5 (1.0-4.8) k/uL Monocytes # 0.8 (0-1.0) k/uL Eosinophils # 0.3 (0-0.7) k/uL Basophils # 0.1 (0-0.2) k/uL D-Dimer (<0.60) mg/L FEU Sodium 135 L (137-145) mmol/L Potassium 4.1 (3.5-5.1) mmol/L Chloride 100 (98-107) mmol/L Carbon Dioxide 26 (22-30) mmol/L Anion Gap 9 mmol/L BUN 22 H (9-20) mg/dL Creatinine 0.73 (0.66-1.25) mg/dL Est GFR (CKD-EPI)AfAm >90 (>60 ml/min/1.73 sqM) Est GFR (CKD-EPI)NonAf >90 (>60 ml/min/1.73 sqM) Glucose 178 H (74-99) mg/dL Calcium 9.5 (8.4-10.2) mg/dL Troponin I <0.012 (0.000-0.034) ng/mL NT-Pro-B Natriuret Pep pg/mL 10/09/19 10/09/19 Range/Units 02:24 02:24 WBC (3.8-10.6) k/uL RBC (4.30-5.90) m/uL Hgb (13.0-17.5) gm/dL Hct (39.0-53.0) % MCV (80.0-100.0) fL MCH (25.0-35.0) pg MCHC (31.0-37.0) g/dL RDW (11.5-15.5) % Plt Count (150-450) k/uL Neutrophils % % Lymphocytes % % Monocytes % % Eosinophils % % Basophils % % Neutrophils # (1.3-7.7) k/uL Lymphocytes # (1.0-4.8) k/uL Monocytes # (0-1.0) k/uL Eosinophils # (0-0.7) k/uL Basophils # (0-0.2) k/uL D-Dimer 0.40 (<0.60) mg/L FEU Sodium (137-145) mmol/L Potassium (3.5-5.1) mmol/L Chloride (98-107) mmol/L Carbon Dioxide (22-30) mmol/L Anion Gap mmol/L BUN (9-20) mg/dL Creatinine (0.66-1.25) mg/dL Est GFR (CKD-EPI)AfAm (>60 ml/min/1.73 sqM) Est GFR (CKD-EPI)NonAf (>60 ml/min/1.73 sqM) Glucose (74-99) mg/dL Calcium (8.4-10.2) mg/dL Troponin I (0.000-0.034) ng/mL NT-Pro-B Natriuret Pep 45 pg/mL Disposition Clinical Impression: Allergic reaction Disposition: HOME SELF-CARE Condition: Good Instructions (If sedation given, give patient instructions): Allergies (ED) Prescriptions: Clindamycin HCl [Cleocin] 300 mg PO Q6H 5 Days #40 cap Is patient prescribed a controlled substance at d/c from ED?: No Referrals: Liudmila Sheikh MD [Primary Care Provider] - 1-2 days Time of Disposition: 03:41
[2019-10-09 02:49] LABS: Basophils # (A) 0.1 k/uL (0-0.2); Basophils % (A) 1 %; Eosinophils # (A) 0.3 k/uL (0-0.7); Eosinophils % (A) 4 %; HCT 40.1 % (39.0-53.0); HGB 14.3 gm/dL (13.0-17.5); Lymphocytes # (A) 2.5 k/uL (1.0-4.8); Lymphocytes % (A) 26 %; MCH 29.5 pg (25.0-35.0); MCHC 35.6 g/dL (31.0-37.0); MCV 82.9 fL (80.0-100.0); Mean Platelet Volume 7.9; Monocytes # (A) 0.8 k/uL (0-1.0); Monocytes % (A) 8 %; Neutrophils # (A) 5.6 k/uL (1.3-7.7); Neutrophils % (A) 59 %; Platelet Count 287 k/uL (150-450); RBC 4.84 m/uL (4.30-5.90); RDW 12.4 % (11.5-15.5); WBC 9.5 k/uL (3.8-10.6)
--- NOTE | 2019-10-09 02:50 | XR ---
EXAMINATION TYPE: XR chest 1V portable DATE OF EXAM: 10/09/2019 COMPARISON: NONE HISTORY: Chest pain TECHNIQUE: FINDINGS: There is no heart failure nor confluent pneumonic infiltrate. Heart and mediastinum are nor mal. Diaphragm is normal. There are chest leads. IMPRESSION: No active cardiopulmonary disease. Normal heart.
[2019-10-09 02:58] LABS: African American GFR (CKD) >90 (>60 ml/min/1.73 sqM); Anion Gap 9 mmol/L; Blood Urea Nitrogen 22 mg/dL (9-20); Calcium 9.5 mg/dL (8.4-10.2); Carbon Dioxide 26 mmol/L (22-30); Chloride 100 mmol/L (98-107); Glucose 178 mg/dL (74-99); Non-African American GFR(CKD) >90 (>60 ml/min/1.73 sqM); Potassium 4.1 mmol/L (3.5-5.1); Sodium 135 mmol/L (137-145)
[2019-10-09 03:14] VITALS: BP 129/88; PULSE 74; RESP 19
== END 2019-10-09 03:59 | disposition home or self-care (01) ==
LOC: EC 01:41
DX: T78.40XA Allergy, unspecified, initial encounter (principal); R07.89 Other chest pain; R20.0 Anesthesia of skin; I10 Essential (primary) hypertension; Z79.899 Other long term (current) drug therapy; Z88.1 Allergy status to other antibiotic agents; Z88.2 Allergy status to sulfonamides
CPT/HCPCS: 36415; 71045; 80048; 83880; 84484; 85025; 85379; 93005; 96374; 99285

== ENCOUNTER 2020-01-29 21:07 | Emergency (ER) | payer BC, OTHER ==
[2020-01-29] MEDS ORDERED: IBUPROFEN 600 MG TAB PO STA (22:14)
[2020-01-29 22:47] LABS: Appearance,Urine Clear (Clear); Bilirubin,Urine Negative (Negative); Blood,Urine Negative (Negative); Color,Urine Yellow; Glucose,Urine (UA) Negative (Negative); Ketones,Urine Negative (Negative); Leukocyte Esterase,Urine Negative (Negative); Nitrite,Urine Negative (Negative); Protein,Urine Negative (Negative); Specific Gravity,Urine 1.018 (1.001-1.035); Urobilinogen,Urine <2.0 mg/dL (<2.0)
--- NOTE | 2020-01-29 23:06 | XR ---
EXAMINATION TYPE: XR chest 2V DATE OF EXAM: 01/29/2020 COMPARISON: 10/09/2019 HISTORY: Chest pain TECHNIQUE: 2 views FINDINGS: Heart and mediastinum are normal. Lungs are clear. Diaphragm is normal. Bony thorax appears normal. IMPRESSION: Normal chest. No change.
[2020-01-29 23:28] LABS: Basophils # (A) 0.1 k/uL (0-0.2); Basophils % (A) 1 %; Eosinophils % (A) 0 %; HCT 45.2 % (39.0-53.0); HGB 15.1 gm/dL (13.0-17.5); Lymphocytes # (A) 0.9 k/uL (1.0-4.8); Lymphocytes % (A) 7 %; MCH 28.4 pg (25.0-35.0); MCHC 33.4 g/dL (31.0-37.0); MCV 85.2 fL (80.0-100.0); Mean Platelet Volume 7.4; Monocytes # (A) 1.1 k/uL (0-1.0); Monocytes % (A) 9 %; Neutrophils # (A) 10.6 k/uL (1.3-7.7); Neutrophils % (A) 82 %; Platelet Count 220 k/uL (150-450); RBC 5.31 m/uL (4.30-5.90); RDW 12.6 % (11.5-15.5); WBC 12.9 k/uL (3.8-10.6)
[2020-01-29 23:39] LABS: ALT 23 U/L (4-49); AST 27 U/L (17-59); African American GFR (CKD) >90 (>60 ml/min/1.73 sqM); Albumin 4.7 g/dL (3.5-5.0); Alkaline Phosphatase 61 U/L (38-126); Anion Gap 12 mmol/L; Blood Urea Nitrogen 14 mg/dL (9-20); Calcium 9.4 mg/dL (8.4-10.2); Carbon Dioxide 23 mmol/L (22-30); Chloride 100 mmol/L (98-107); Glucose 152 mg/dL (74-99); Non-African American GFR(CKD) >90 (>60 ml/min/1.73 sqM); Sodium 135 mmol/L (137-145); Total Bilirubin 0.6 mg/dL (0.2-1.3); Total Protein 7.7 g/dL (6.3-8.2)
--- NOTE | 2020-01-30 00:08 | ED ---
General Adult HPI - General Chief complaint: Fever Stated complaint: Fever Time Seen by Provider: 01/29/20 21:27 Source: patient, RN notes reviewed, old records reviewed Mode of arrival: ambulatory Limitations: no limitations - History of Present Illness Initial comments: 49-year-old male patient proceeded chief complaint of fever. Patient reports that the last 2 days he has had waxing and waning fever generalized myalgias, high 101F. Denies any focal or pain. Denies any cough. Patient is exposed to many people on a daily basis. Systemic: Pt denies fatigue, rash. Pt denies weakness, night sweats, weight loss. Neuro: Pt denies headache, visual disturbances, syncope or pre-syncope. HEENT: Pt denies ocular discharge or irritation, otalgia, rhinorrhea, pharyngitis or notable lymphadenopathy. Cardiopulmonary: Pt denies chest pain, SOB, heart palpitations, dyspnea on exertion. Abdominal/GI: Pt denies abdominal pain, n/v/d. : Pt denies dysuria, burning w/ urination, frequency/urgency. Denies new onset urinary or bowel incontinence. MSK: Pt denies loss of strength or function in extremities. Neuro: Pt denies new onset weakness, paresthesias. - Related Data Home Medications Medication Instructions Recorded Confirmed Lisinopril [Prinivil] 10 mg PO DAILY 12/19/16 01/29/20 Allergies Allergy/AdvReac Type Severity Reaction Status Date / Time sulfamethoxazole Allergy Rash/Hives Verified 01/29/20 22:59 [From Bactrim] trimethoprim [From Bactrim] Allergy Rash/Hives Verified 01/29/20 22:59 Review of Systems ROS Statement: Those systems with pertinent positive or pertinent negative responses have been documented in the HPI. ROS Other: All systems not noted in ROS Statement are negative. Past Medical History Past Medical History: Hypertension History of Any Multi-Drug Resistant Organisms: None Reported Past Surgical History: No Surgical Hx Reported Additional Past Surgical History / Comment(s): LT CHEST BENIGN MASS REMOVED, LACERATION TO SCALP/SUTURED(NO SX), I&D of abdominal soft tissue abscesses Past Anesthesia/Blood Transfusion Reactions: Motion Sickness Past Psychological History: No Psychological Hx Reported Smoking Status: Never smoker Past Alcohol Use History: Occasional Past Drug Use History: None Reported - Past Family History Father Additional Family Medical History / Comment(s): FROM LUNG DISEASE Mother Family Medical History: Cancer Additional Family Medical History / Comment(s): -LEUKEMIA General Exam - General Exam Comments Initial Comments: Constitutional: NAD, AOX3, Pt has pleasant affect. HEENT: NC/AT, trachea midline, neck supple, no lymphadenopathy. Posterior pharynx non erythematous, without exudates. External ears appear normal, without discharge. Mucous membranes moist. Eyes PERRLA, EOM intact. There is no scleral icterus. No pallor noted. Cardiopulmonary: RRR, no murmurs, rubs or gallops, no JVD noted. Lungs CTAB in anterior and posterior zheng. No peripheral edema. Abdominal exam: Abdomen soft and non-distended. Abdomen non-tender to palpation in all 4 quadrants. Bowel sounds active in LLQ. No hepatosplenomegaly. No ecchymosis Neuro: CN II-XII grossly intact. No nuchal rigidity. No raccon eyes, no huerta sign, no hemotympanum. No cervical spinal tenderness. MSK: No posterior calf tenderness bilaterally, homans sign negative bilaterally. Full active ROM in upper and lower extremities, 5/5 stregnth. Limitations: no limitations Course Vital Signs 01/29/20 21:10 Temperature 99.5 F Pulse Rate 104 H Respiratory 18 Rate Blood Pressure 155/82 O2 Sat by Pulse 97 Oximetry Medical Decision Making - Medical Decision Making 49-year-old male patient presents to ED for chief complaint of fever. Patient vital signs are stable, afebrile. Physical exam did not display acute pathology. Laboratory investigations revealed mild leukocytosis mild lymphocytopenia. Mild hyperglycemia 152. UA is negative. Chest x-ray revealed no acute process. Patient will be tested for coronavirus. Will be discharged with outpatient follow-up with primary care provider. Return ER physician worsens. Case discussed with Dr. Melgar. - Lab Data Result diagrams: 01/29/20 22:33 01/29/20 22:33 Lab Results 01/29/20 01/29/20 01/29/20 Range/Units 22:33 22:33 22:37 WBC 12.9 H (3.8-10.6) k/uL RBC 5.31 (4.30-5.90) m/uL Hgb 15.1 (13.0-17.5) gm/dL Hct 45.2 (39.0-53.0) % MCV 85.2 (80.0-100.0) fL MCH 28.4 (25.0-35.0) pg MCHC 33.4 (31.0-37.0) g/dL RDW 12.6 (11.5-15.5) % Plt Count 220 (150-450) k/uL Neutrophils % 82 % Lymphocytes % 7 % Monocytes % 9 % Eosinophils % 0 % Basophils % 1 % Neutrophils # 10.6 H (1.3-7.7) k/uL Lymphocytes # 0.9 L (1.0-4.8) k/uL Monocytes # 1.1 H (0-1.0) k/uL Eosinophils # 0.0 (0-0.7) k/uL Basophils # 0.1 (0-0.2) k/uL Sodium 135 L (137-145) mmol/L Potassium 4.0 (3.5-5.1) mmol/L Chloride 100 (98-107) mmol/L Carbon Dioxide 23 (22-30) mmol/L Anion Gap 12 mmol/L BUN 14 (9-20) mg/dL Creatinine 0.84 (0.66-1.25) mg/dL Est GFR (CKD-EPI)AfAm >90 (>60 ml/min/1.73 sqM) Est GFR (CKD-EPI)NonAf >90 (>60 ml/min/1.73 sqM) Glucose 152 H (74-99) mg/dL Calcium 9.4 (8.4-10.2) mg/dL Total Bilirubin 0.6 (0.2-1.3) mg/dL AST 27 (17-59) U/L ALT 23 (4-49) U/L Alkaline Phosphatase 61 (38-126) U/L Total Protein 7.7 (6.3-8.2) g/dL Albumin 4.7 (3.5-5.0) g/dL Urine Color Yellow Urine Appearance Clear (Clear) Urine pH 6.0 (5.0-8.0) Ur Specific [place] 1.018 (1.001-1.035) Urine Protein Negative (Negative) Urine Glucose (UA) Negative (Negative) Urine Ketones Negative (Negative) Urine Blood Negative (Negative) Urine Nitrite Negative (Negative) Urine Bilirubin Negative (Negative) Urine Urobilinogen <2.0 (<2.0) mg/dL Ur Leukocyte Esterase Negative (Negative) Disposition Clinical Impression: Fever Disposition: HOME SELF-CARE Condition: Stable Instructions (If sedation given, give patient instructions): Fever in Adults (ED) Additional Instructions: Follow-up with primary care provider tomorrow. May use Tylenol and Motrin. Have blood sugar recheck by PCP. Return to ER if condition worsens. Is patient prescribed a controlled substance at d/c from ED?: No Referrals: Liudmila Sheikh MD [Primary Care Provider] - 1-2 days
[2020-01-30 10:28] VITALS: BP 133/75; PULSE 75; RESP 18; TEMP 98.1
== END 2020-01-30 00:25 | disposition home or self-care (01) ==
LOC: EC 21:07
DX: Z20.828 Contact with and (suspected) exposure to other viral communicable diseases (principal); R50.9 Fever, unspecified; D72.829 Elevated white blood cell count, unspecified; D72.810 Lymphocytopenia; R73.9 Hyperglycemia, unspecified; I10 Essential (primary) hypertension; Z79.899 Other long term (current) drug therapy; Z88.2 Allergy status to sulfonamides; Z88.1 Allergy status to other antibiotic agents
CPT/HCPCS: 36415; 80053; 85025; 81003; 87040; 71046; 99284; U0003

== ENCOUNTER → 2021-09-09 | Outpatient (CLI) | payer OTHER ==
--- NOTE | 2021-09-10 03:58 | MR ---
EXAMINATION TYPE: MR knee LT wo con DATE OF EXAM: 09/09/2021 COMPARISON: None HISTORY: Left outer knee pain, and pain behind knee for 1 year due to slip and fall that twisted leg. Multiplanar multiecho imaging of the left knee without contrast. The anterior and posterior cruciate ligaments are intact. There is horizontal defect through the post erior horn of the medial meniscus extending to the inferior surface. The lateral meniscus appears int act. There is a knee joint effusion. There is some mild increased signal in the subchondral patella o n the superior aspect. Collateral ligaments appear intact. There is no evidence of focal bone destruc tion. No fracture seen. IMPRESSION: Large horizontal tear through the posterior horn of the medial meniscus. Knee joint effusion. Small b one bruise in the superior subchondral patella. No fracture.
== END | disposition home or self-care (01) ==
LOC: RADMRIMAIN 18:30
DX: S83.242A Other tear of medial meniscus, current injury, left knee, initial encounter (principal); M25.461 Effusion, right knee; X58.XXXA Exposure to other specified factors, initial encounter

== ENCOUNTER 2021-09-23 08:04 | Day surgery (SDC) | payer BC, OTHER ==
[2021-09-21 16:24] VITALS: BMI 33.7
[2021-09-23] MEDS ORDERED: LACTATED RINGERS 1,000 ML IV SCH (08:07)
[2021-09-23 08:21] VITALS: RESP 16; TEMP 97
[2021-09-23 08:41] LABS: Glucose,Whole Blood 96 mg/dL (75-99)
[2021-09-23] MEDS ORDERED: PROPOFOL 10 MG/ML 20 ML VIAL IV ONE (08:41)
--- NOTE | 2021-09-23 09:01 | P.PCN ---
Date of Procedure: 09/23/21 Procedure(s) Performed: BRIEF HISTORY: Patient is a 51-year-old pleasant white male scheduled for an elective colonoscopy as a part of screening for colorectal neoplasia. PROCEDURE PERFORMED: Colonoscopy. PREOPERATIVE DIAGNOSIS: Screening for colon cancer. IV sedation per Anesthesia. PROCEDURE: After informed consent was obtained, the patient, was brought into the endoscopy unit. IV sedation was administered by Anesthesia under continuous monitoring. Digital rectal examination was normal. Initially the Olympus CF-160 flexible video colonoscope was then inserted in the rectum, gradually advanced into the cecum without any difficulty. Careful examination was performed as the scope was gradually being withdrawn. Ileocecal valve and the appendiceal orifice were visualized and appeared normal. Prep was excellent. Mucosa of the cecum, ascending colon, transverse colon, descending colon, sigmoid colon, and rectum appeared normal. Retroflexion was performed in the rectum and no lesions were seen. The patient tolerated the procedure well. IMPRESSION: Normal-appearing colon from rectum to cecum with no evidence of colorectal neoplasia . RECOMMENDATIONS: Findings of this examination were discussed with the patient is well as his family. He was advised to have a repeat screening colonoscopy in 10 years.
[2021-09-23 09:19] VITALS: BP 111/73; PULSE 64
== END 2021-09-23 09:40 | disposition home or self-care (01) ==
LOC: ORWHC2ENDO 08:04
PROVIDERS: ATTEND Internal Medicine Gastroenterology
DX: Z12.11 Encounter for screening for malignant neoplasm of colon (principal); I10 Essential (primary) hypertension; E78.5 Hyperlipidemia, unspecified; G47.33 Obstructive sleep apnea (adult) (pediatric); E11.9 Type 2 diabetes mellitus without complications
CPT/HCPCS: 45378; J2704

== ENCOUNTER → 2022-02-07 | Outpatient (CLI) | payer OTHER ==
[2022-02-07 22:36] LABS: Basophils # (A) 0.11 X 10*3/uL (0.00-0.10); Basophils % (A) 0.9 %; Eosinophils # (A) 0.38 X 10*3/uL (0.04-0.35); Eosinophils % (A) 3.3 %; HCT 45.3 % (39.6-50.0); Immature Grans, Automated 0.9 %; Lymphocytes % (A) 22.4 %; MCH 28.6 pg (27.0-32.0); MCHC 33.1 g/dL (32.0-37.0); MCV 86.3 fL (80.0-97.0); Mean Platelet Volume 10.4 fL (9.5-12.2); Monocytes # (A) 1.33 X 10*3/uL (0.20-1.00); Monocytes % (A) 11.5 %; NRBC Per 100 WBC 0 /100 WBCS (0.0-0.0); Neutrophils # (A) 7.06 X 10*3/uL (1.80-7.70); Platelet Count 307 X 10*3/uL (140-440); RBC 5.25 X 10*6/uL (4.40-5.60); RDW 12.2 % (11.5-14.5); WBC 11.59 X 10*3/uL (4.50-10.00)
[2022-02-07 22:46] LABS: Anion Gap 13.7 mmol/L (10.00-18.00); Carbon Dioxide 22.3 mmol/L (20.0-27.5); Potassium 3.7 mmol/L (3.5-5.5)
== END | disposition home or self-care (01) ==
LOC: LABPAT 15:22
PROVIDERS: ATTEND Orthopaedic Surgery
DX: Z01.812 Encounter for preprocedural laboratory examination (principal); M23.92 Unspecified internal derangement of left knee
CPT/HCPCS: 80051; 85025; 93005

== ENCOUNTER → 2022-02-10 | Day surgery (SDC) | payer OTHER ==
[2022-02-08 12:34] VITALS: BMI 31.4
[~2022-02-10] MED LIST: DEXAMETHASONE SOD PHOSPHATE 4 MG/ML 1 ML VIAL IV ONE; IV FLUID CONTINUATION 1,000 ML IV ONE; KETAMINE 10 MG/ML 20 ML VIAL ONE; KETOROLAC 15 MG/ML 1 ML VIAL ONE; LACTATED RINGERS 1,000 ML IV SCH; LIDOCAINE 1% (10MG/ML) FOR IV START INTRADERMA PRN; LIDOCAINE 2% INJ 20 MG/ML (2 ML VIAL) ONE; MIDAZOLAM 2 MG/2 ML VIAL ONE; ONDANSETRON 4 MG/2 ML VIAL IVP ONE; PROPOFOL 10 MG/ML 20 ML VIAL IV ONE; fentaNYL (PF) 50 MCG/ML 2 ML AMP ONE
[2022-02-10 07:34] VITALS: RESP 16
--- NOTE | 2022-02-10 08:54 | P.OP ---
Date of Procedure: 02/10/22 Preoperative Diagnosis: Left knee internal derangement Postoperative Diagnosis: Left knee posterior medial meniscal tear Procedure(s) Performed: Left knee arthroscopic partial medial meniscectomy Anesthesia: OKSANAA Surgeon: Joaquin Barcenas Estimated Blood Loss (ml): 10 Pathology: none sent Condition: stable Disposition: PACU Indications for Procedure: The patient's 52-year-old male presents with progressive left knee pain and mechanical symptoms after previous twisting injury despite conservative measures. A discussion of the risks and benefits of operative intervention versus continued conservative measures was made with patient. He opted to proceed with surgery. Operative risks to include infection, neurovascular injury, development of blood clots, possible incomplete resolution of symptoms, possible worsening symptoms and need for subsequent procedures was discussed. Informed consent was obtained. Operative Findings: As below Description of Procedure: The patient was brought to the operating room, and after induction of general anesthesia examined the left knee. Collaterals were stable, Flavia was negative, and posterior drawer was negative. The left lower extremity was prepped and draped in a normal fashion. A superior lateral portal was made through a 3 mm skin incision superior and lateral to the patella. This was used for outflow. A lateral portal was made through a 5 mm vertical skin incision lateral to the patella tendon above the joint line. Diagnostic arthroscopy was performed. On inspection of the medial compartment, a complex tear involving the middle to posterior one third of the medial meniscus was noted in the white- red junction. This was debrided back to stable base with straight baskets and a motorized shaver. A corresponding grade 2-3 chondral changes were noted involving the central lateral portion the medial femoral condyle. On inspection of the notch, the anterior cruciate ligament appeared to be intact. On inspection of the lateral compartment, no significant cartilage or meniscal pathology was noted. On inspection of the patellofemoral articulation, there was grade 2-3 chondral changes diffusely. The gutters were clear debris. The knee was then thoroughly irrigated. The portals were closed with Steri-Strips. A sterile dressing was applied in addition to a compression stocking. The patient was awoken from general anesthesia and transferred to recovery room in good condition. Blood loss was estimated at 10 mL. No complications were incurred.
[2022-02-10 09:00] VITALS: TEMP 97
[2022-02-10] MEDS: HYDROmorphone 0.5 MG/0.5 ML SYRINGE IVP PRN ×2 (09:20→09:28)
[2022-02-10 10:36] VITALS: BP 132/74; PULSE 71
== END | disposition home or self-care (01) ==
LOC: OR 06:53
PROVIDERS: ATTEND Orthopaedic Surgery
DX: M23.222 Derangement of posterior horn of medial meniscus due to old tear or injury, left knee (principal); Z88.2 Allergy status to sulfonamides; Z88.3 Allergy status to other anti-infective agents; Z79.899 Other long term (current) drug therapy; I10 Essential (primary) hypertension; J45.909 Unspecified asthma, uncomplicated; G47.33 Obstructive sleep apnea (adult) (pediatric); M19.90 Unspecified osteoarthritis, unspecified site; R73.03 Prediabetes; Z80.6 Family history of leukemia; Z80.1 Family history of malignant neoplasm of trachea, bronchus and lung; Z80.3 Family history of malignant neoplasm of breast
CPT/HCPCS: 29881; J2250; J1100; J0690; J2405; J3010; J1885; J2704; J1170; J2001

== ENCOUNTER 2022-04-09 22:42 | Emergency (ER) | payer OTHER ==
[2022-04-09] MEDS ORDERED: SODIUM CHLORIDE 0.9% 1,000 ML IV STA (23:44)
[2022-04-09] MEDS ORDERED: ACETAMINOPHEN TAB 500 MG TAB PO STA (23:51)
[2022-04-10] MEDS ORDERED: CLINDAMYCIN 600 MG in DEXTROSE 5% IN WATER 50 ML IVPB ONE ×2
--- NOTE | 2022-04-10 00:04 | ED ---
Skin/Abscess/FB HPI - General Chief complaint: Skin/Abscess/Foreign Body Stated complaint: Infection in Left Knee Time Seen by Provider: 04/09/22 23:35 Source: patient, RN notes reviewed Mode of arrival: ambulatory Limitations: no limitations - History of Present Illness Initial comments: This is a pleasant 52-year-old male who presents to the emergency department chief complaint of an infection just above his left knee. He states it started on as a small pustule but now has progressed to involve most of his left eye. Patient has erythema progressing proximally. Some pain to the area of induration. No shortness of breath or chest pain. No other skin manifestations or lesions. Patient states he recently did have poison yelena and is heading over that however had no lesions in this area. Patient previously has had problems with cellulitis several years ago. He has no history of MRSA however. No immunosuppression. No headache, no fever or chills, no changes in vision or hearing, no sore throat or difficulty with speech, no neck pain, no chest pain or shortness of breath, no abdominal pain, no nausea or vomiting, no changes in urination or bowel movements, no numbness or tingling, Past medical, surgical, social, and family history reviewed. - Related Data Home Medications Medication Instructions Recorded Confirmed Multivitamins, Thera [Multivitamin 1 tab PO DAILY 02/08/22 02/08/22 (formulary)] lisinopriL [Prinivil] 20 mg PO QAM 02/08/22 02/10/22 Previous Rx's Medication Instructions Recorded HYDROcodone/APAP 5-325MG [[place] 1 tab PO Q6HR PRN 6 Days #21 tab 02/10/22 5-325] Clindamycin [Cleocin] 450 mg PO Q8H 10 Days #30 cap 04/10/22 Allergies Allergy/AdvReac Type Severity Reaction Status Date / Time sulfamethoxazole Allergy Rash/Hives/ Verified 04/09/22 23:32 [From Bactrim] itching trimethoprim [From Bactrim] Allergy Rash/Hives Verified 04/09/22 23:32 Review of Systems ROS Statement: Those systems with pertinent positive or pertinent negative responses have been documented in the HPI. ROS Other: All systems not noted in ROS Statement are negative. Past Medical History Past Medical History: Hypertension History of Any Multi-Drug Resistant Organisms: None Reported Past Surgical History: No Surgical Hx Reported, Orthopedic Surgery Additional Past Surgical History / Comment(s): LT CHEST BENIGN MASS REMOVED, LACERATION TO SCALP/SUTURED(NO SX), I&D of abdominal soft tissue abscesses Past Anesthesia/Blood Transfusion Reactions: Motion Sickness Past Psychological History: No Psychological Hx Reported Smoking Status: Never smoker Past Alcohol Use History: Occasional Past Drug Use History: None Reported - Past Family History Father Additional Family Medical History / Comment(s): FROM LUNG DISEASE Mother Family Medical History: Cancer Additional Family Medical History / Comment(s): -LEUKEMIA Sister(s) Family Medical History: Cancer Additional Family Medical History / Comment(s): BREAST CANCER General Exam - General Exam Comments Initial Comments: Healthy-appearing 52-year-old male in no significant distress. Patient does have erythema just above his left knee consistent with superficial cellulitis involving the anterior aspect of the distal left thigh. This is not consistent with joint space infection as there is no knee effusion. Patient retains full range of motion. Limitations: no limitations General appearance: alert, in no apparent distress Head exam: Present: atraumatic, normocephalic, normal inspection Eye exam: Present: normal appearance, PERRL, EOMI. Absent: scleral icterus, conjunctival injection, periorbital swelling ENT exam: Present: normal exam, mucous membranes moist Neck exam: Present: normal inspection, full ROM. Absent: tenderness, meningismus, lymphadenopathy Respiratory exam: Present: normal lung sounds bilaterally. Absent: respiratory distress, wheezes, rales, rhonchi, stridor, chest wall tenderness, accessory muscle use, decreased breath sounds, prolonged expiratory Cardiovascular Exam: Present: regular rate, normal rhythm, normal heart sounds. Absent: systolic murmur, diastolic murmur, rubs, gallop, clicks GI/Abdominal exam: Present: soft, normal bowel sounds. Absent: distended, tenderness, guarding, rebound, rigid Extremities exam: Present: full ROM, tenderness (Patient has minimal tenderness to palpation with an area of induration just proximal to left knee in the distal anterior thigh area. Erythematous progressed to the mid thigh. Patient does have a noted left inguinal lymph node which is nontender. There is no lymphangitis. No distal abnormalities.), normal capillary refill. Absent: pedal edema, joint swelling, calf tenderness Left Upper Leg exam: Present: tenderness, erythema. Absent: crepitus Knee exam: Present: normal inspection, full ROM. Absent: tenderness, swelling, abrasion, laceration, ecchymosis, deformity, crepitus, dislocation, erythema, effusion Lower Leg exam: Present: normal inspection. Absent: tenderness Ankle exam: Present: normal inspection, full ROM. Absent: tenderness Foot/Toe exam: Present: normal inspection, full ROM. Absent: tenderness Neurovascular tendon exam: Present: no vascular compromise. Absent: pulse deficit, abnormal cap refill, motor deficit, sensory deficit, tendon deficit, extremity cold to touch, pallor Gait: observed and normal Back exam: Present: normal inspection Neurological exam: Present: alert, oriented X3, CN II-XII intact Psychiatric exam: Present: normal affect, normal mood Skin exam: Present: warm, dry, intact, normal color. Absent: rash Course Vital Signs 04/09/22 23:24 Temperature 101.0 F H Pulse Rate 102 H Respiratory 20 Rate Blood Pressure 156/75 O2 Sat by Pulse 96 Oximetry - Reevaluation(s) Reevaluation #1: 04/10/22 01:59 Medical record is reviewed Symptoms are improved here in the emergency department Patient is informed of results and questions answered Patient in no distress Patient has 3 SIRS criteria plus evidence of infectious process. Meets the criteria for sepsis Procedures - Sepsis Sepsis Focused Exam #1 Time Sepsis Criteria Met: 02:01 Sepsis Focused Exam Date: 04/10/22 Sepsis Focused Exam Complete: Yes Vital Signs & RN Notes Reviewed: Yes Capillary Refill: < 2 Seconds: Fingers, Toes Peripheral Pulses: Normal: Radial (R), Radial (L), Posterior Tibialis (R), Posterior Tibialis (L), Dorsalis Pedis (R), Dorsalis Pedis (L) Skin Color: Normal for Patient Respiratory Exam: normal lung sounds Cardiovascular Exam: regular rate Medical Decision Making - Lab Data Result diagrams: 04/10/22 00:50 04/10/22 00:50 Lab Results 04/10/22 04/10/22 04/10/22 Range/Units 00:50 00:50 00:50 WBC 16.4 H (3.8-10.6) k/uL RBC 4.82 (4.30-5.90) m/uL Hgb 13.9 (13.0-17.5) gm/dL Hct 41.6 (39.0-53.0) % MCV 86.5 (80.0-100.0) fL MCH 28.9 (25.0-35.0) pg MCHC 33.5 (31.0-37.0) g/dL RDW 12.1 (11.5-15.5) % Plt Count 251 (150-450) k/uL MPV 7.6 Neutrophils % 77 % Lymphocytes % 12 % Monocytes % 8 % Eosinophils % 2 % Basophils % 1 % Neutrophils # 12.6 H (1.3-7.7) k/uL Lymphocytes # 1.9 (1.0-4.8) k/uL Monocytes # 1.3 H (0-1.0) k/uL Eosinophils # 0.3 (0-0.7) k/uL Basophils # 0.1 (0-0.2) k/uL Sodium 134 L (137-145) mmol/L Potassium 3.7 (3.5-5.1) mmol/L Chloride 103 (98-107) mmol/L Carbon Dioxide 22 (22-30) mmol/L Anion Gap 9 mmol/L BUN 15 (9-20) mg/dL Creatinine 0.82 (0.66-1.25) mg/dL Est GFR (CKD-EPI)AfAm >90 (>60 ml/min/1.73 sqM) Est GFR (CKD-EPI)NonAf >90 (>60 ml/min/1.73 sqM) Glucose 137 H (74-99) mg/dL Plasma Lactic Acid [place] 0.8 (0.7-2.0) mmol/L Calcium 8.5 (8.4-10.2) mg/dL Total Bilirubin 0.4 (0.2-1.3) mg/dL AST 24 (17-59) U/L ALT 18 (4-49) U/L Alkaline Phosphatase 53 (38-126) U/L C-Reactive Protein 4.9 H (<1.0) mg/dL Total Protein 5.6 L (6.3-8.2) g/dL Albumin 3.5 (3.5-5.0) g/dL - Radiology Data Radiology results: pending, image reviewed Patient's x-ray shows no evidence of acute findings. There is no subcutaneous gas. No evidence of foreign body. Awaiting radiology interpretation Disposition Clinical Impression: Cellulitis of left thigh, Sepsis Disposition: HOME SELF-CARE Condition: Good Additional Instructions: Take antibiotics as directed. Elevate your leg as much as possible. Apply warm compresses for 10-15 minutes at a time 4 times per day. Follow-up with your regular doctor. Follow-up with your regular physician as directed. Return to the ER immediately if any symptoms worsen, new symptoms arise, or any other problems develop. Use Tylenol 500 mg every 4-6 hours for fever control you can also add in [id number] ibuprofen if need be. Is patient prescribed a controlled substance at d/c from ED?: No Referrals: [facility],Clinic [Primary Care Provider] - 1-2 days Time of Disposition: 01:59 Decision to Admit Reason: Admit from EC Decision Time: 01:59
[2022-04-10 01:29] LABS: Basophils # (A) 0.1 k/uL (0-0.2); Basophils % (A) 1 %; Eosinophils # (A) 0.3 k/uL (0-0.7); Eosinophils % (A) 2 %; HCT 41.6 % (39.0-53.0); HGB 13.9 gm/dL (13.0-17.5); Lymphocytes # (A) 1.9 k/uL (1.0-4.8); Lymphocytes % (A) 12 %; MCH 28.9 pg (25.0-35.0); MCHC 33.5 g/dL (31.0-37.0); MCV 86.5 fL (80.0-100.0); Mean Platelet Volume 7.6; Monocytes # (A) 1.3 k/uL (0-1.0); Monocytes % (A) 8 %; Neutrophils # (A) 12.6 k/uL (1.3-7.7); Neutrophils % (A) 77 %; Platelet Count 251 k/uL (150-450); RBC 4.82 m/uL (4.30-5.90); RDW 12.1 % (11.5-15.5); WBC 16.4 k/uL (3.8-10.6)
--- NOTE | 2022-04-10 01:41 | XR ---
EXAMINATION TYPE: XR femur LT DATE OF EXAM: 04/10/2022 COMPARISON: NONE HISTORY: Knee infection. Insect bite TECHNIQUE: 5 view FINDINGS: There is no evidence of fracture nor dislocation. Joint spaces are normal. No sign of a for eign body. Hip joint and knee joint appear intact. IMPRESSION: Negative left femur exam.
[2022-04-10 02:00] LABS: ALT 18 U/L (4-49); AST 24 U/L (17-59); African American GFR (CKD) >90 (>60 ml/min/1.73 sqM); Albumin 3.5 g/dL (3.5-5.0); Alkaline Phosphatase 53 U/L (38-126); Anion Gap 9 mmol/L; Blood Urea Nitrogen 15 mg/dL (9-20); C Reactive Protein 4.9 mg/dL (<1.0); Calcium 8.5 mg/dL (8.4-10.2); Carbon Dioxide 22 mmol/L (22-30); Chloride 103 mmol/L (98-107); Glucose 137 mg/dL (74-99); Non-African American GFR(CKD) >90 (>60 ml/min/1.73 sqM); Potassium 3.7 mmol/L (3.5-5.1); Sodium 134 mmol/L (137-145); Total Bilirubin 0.4 mg/dL (0.2-1.3); Total Protein 5.6 g/dL (6.3-8.2)
[2022-04-10 03:36] VITALS: BP 129/88; PULSE 74; RESP 18; TEMP 97.4
== END 2022-04-10 03:34 | disposition home or self-care (01) ==
LOC: EC 22:42
DX: L03.116 Cellulitis of left lower limb (principal); A41.9 Sepsis, unspecified organism; R65.20 Severe sepsis without septic shock; I10 Essential (primary) hypertension; Z88.2 Allergy status to sulfonamides
CPT/HCPCS: 36415; 80053; 83605; 85025; 86140; 87040; 87070; 87077; 87186; 87205; 96361; 96365; 99283

== ENCOUNTER → 2023-08-06 | Outpatient (CLI) | payer OTHER ==
--- NOTE | 2023-08-06 10:12 | CT ---
EXAMINATION TYPE: CT brain wo con CT DLP: 1191.50 mGycm, Automated exposure control for dose reduction was used. DATE OF EXAM: 08/06/2023 9:58 AM COMPARISON: None. CLINICAL INDICATION:Male, 53 years old with history of R51 headache, Chronic headaches pain felt at s ides of head TECHNIQUE: Brain: Axial CT images of the brain were obtained with coronal and sagittal reformats created and rev iewed. Contrast used: None. Oral contrast used: None. FINDINGS: Brain: Extra-axial spaces: No abnormal extra-axial fluid collections. Ventricular system: Within normal limits Cerebral parenchyma: No acute intraparenchymal hemorrhage or mass effect. The hayden-white junction is well differentiated. Cerebellum: Unremarkable. Mass effect: No evidence of midline shift. Intracranial vasculature: unremarkable Soft tissues: Normal. Calvarium/osseous structures: No depressed skull fracture. Paranasal sinuses and mastoid air cells: Mild scattered paranasal sinus disease. Visualized orbits: Orbital contents are intact. IMPRESSION: No acute intracranial process.
== END | disposition home or self-care (01) ==
LOC: RADCTMAIN 09:34
DX: R51.0 Headache with orthostatic component, not elsewhere classified (principal)
CPT/HCPCS: 70450

== ENCOUNTER 2024-01-10 19:48 | Emergency (ER) | payer OTHER ==
--- NOTE | 2024-01-10 20:12 | ED ---
Lower Extremity Injury HPI - General Chief Complaint: Extremity Injury, Lower Stated Complaint: slip and fall right side Time Seen by Provider: 01/10/24 20:10 Source: patient, family, RN notes reviewed Mode of arrival: wheelchair Limitations: no limitations - History of Present Illness Initial Comments: 53-year-old male presented to the ER with a chief complaint of right knee pain. Patient states he was doing yard work this evening and accidentally slipped twisting his right knee. He states he heard a loud "pop". He has been experiencing posterior knee pain with radiation to hamstring since. He states been extremely painful to bear weight or walk to the point where he is unable to. He took an [id number] ibuprofen for pain relief and has been icing his knee prior to arrival. He denies any other injuries, paresthesias, head injury or loss of consciousness prior to fall. - Related Data Home Medications Medication Instructions Recorded Confirmed Multivitamins, Thera [Multivitamin 1 tab PO DAILY 02/08/22 02/08/22 (formulary)] lisinopriL [Prinivil] 20 mg PO QAM 02/08/22 02/10/22 Previous Rx's Medication Instructions Recorded HYDROcodone/APAP 5-325MG [[place] 1 tab PO Q6HR PRN 6 Days #21 tab 02/10/22 5-325] Clindamycin [Cleocin] 450 mg PO Q8H 10 Days #30 cap 04/10/22 Allergies Allergy/AdvReac Type Severity Reaction Status Date / Time sulfamethoxazole Allergy Rash/Hives/ Verified 01/10/24 19:52 [From Bactrim] itching trimethoprim [From Bactrim] Allergy Rash/Hives Verified 01/10/24 19:52 Review of Systems ROS Statement: Those systems with pertinent positive or pertinent negative responses have been documented in the HPI. ROS Other: All systems not noted in ROS Statement are negative. Past Medical History Past Medical History: Diabetes Mellitus, Hypertension History of Any Multi-Drug Resistant Organisms: None Reported Past Surgical History: No Surgical Hx Reported, Orthopedic Surgery Additional Past Surgical History / Comment(s): LT CHEST BENIGN MASS REMOVED, LACERATION TO SCALP/SUTURED(NO SX), I&D of abdominal soft tissue abscesses Past Anesthesia/Blood Transfusion Reactions: Motion Sickness Past Psychological History: No Psychological Hx Reported Smoking Status: Never smoker Past Alcohol Use History: Occasional Past Drug Use History: None Reported - Past Family History Father Additional Family Medical History / Comment(s): FROM LUNG DISEASE Mother Family Medical History: Cancer Additional Family Medical History / Comment(s): -LEUKEMIA Sister(s) Family Medical History: Cancer Additional Family Medical History / Comment(s): BREAST CANCER General Exam Limitations: no limitations General appearance: alert, in no apparent distress Respiratory exam: Present: normal lung sounds bilaterally. Absent: respiratory distress, wheezes, rales, rhonchi, stridor Cardiovascular Exam: Present: regular rate, normal rhythm, normal heart sounds. Absent: systolic murmur, diastolic murmur, rubs, gallop, clicks Extremities exam: Present: tenderness (Distal hamstrings. 2+ right dorsalis pedis and posterior tibialis pulses. No bony tenderness. Sensation intact. Pain with active flexion.) Neurological exam: Present: alert, oriented X3, CN II-XII intact Skin exam: Present: warm, dry, intact, normal color. Absent: rash Course Vital Signs 01/10/24 01/10/24 19:51 22:05 Temperature 98 F 98.1 F Pulse Rate 83 75 Respiratory 18 16 Rate Blood Pressure 150/94 153/97 O2 Sat by Pulse 97 97 Oximetry Medical Decision Making - Medical Decision Making Was pt. sent in by a medical professional or institution ([facility], [employer], urgent care, hospital, or half-way...) When possible be specific @ -No Did you speak to anyone other than the patient for history (EMS, parent, family, police, friend...)? What history was obtained from this source @ -No Did you review nursing and triage notes (agree or disagree)? Why? @ -I reviewed and agree with nursing and triage notes Were old charts reviewed (outside hosp., previous admission, EMS record, old EKG, old radiological studies, urgent care reports/EKG's, half-way records)? Report findings @ -No old charts were reviewed Differential Diagnosis (chest pain, altered mental status, abdominal pain women, abdominal pain men, vaginal bleeding, weakness, fever, dyspnea, syncope, headache, dizziness, GI bleed, back pain, seizure, CVA, palpatations, mental health, musculoskeletal)? @ -Differential Musculoskeletal: Muscular strain, contusion, ligament sprain, fracture, arthritis, septic arthritis, bursitis, cellulitis, muscle spasm, nerve compression, DVT, arterial occlusion, herpes zoster, electrolyte abnormality, tumor.... This is not meant to be in all inclusive list EKG interpreted by me (3pts min.). @ -None X-rays interpreted by me (1pt min.). @ -Right knee xray interpreted by me negative for acute osseous process. CT interpreted by me (1pt min.). @ -None done U/S interpreted by me (1pt. min.). @ -None done What testing was considered but not performed or refused? (CT, X-rays, U/S, labs)? Why? @ -None What meds were considered but not given or refused? Why? @ -None Did you discuss the management of the patient with other professionals (professionals i.e. , PA, GR[employer] WORK[employer], lab, RT, psych nurse, aids social worker, stabber, te acher, quality officer, employment case manager)? Give summary @ -No Was smoking cessation discussed for >3mins.? @ -No Was critical care preformed (if so, how long)? @ -No Were there social determinants of health that impacted care today? How? (Homelessness, low income, unemployed, alcoholism, drug addiction, transportation, low edu. Level, literacy, decrease access to med. care, senior living, rehab)? @ -No Was there de-escalation of care discussed even if they declined (Discuss DNR or withdrawal of care, Hospice)? DNR status @ -No What co-morbidities impacted this encounter? (DM, HTN, Smoking, COPD, CAD, C ancer, CVA, ARF, Chemo, Hep., AIDS, mental health diagnosis, sleep apnea, morbid obesity)? @ -None Was patient admitted / discharged? Hospital course, mention meds given and route, prescriptions, significant lab abnormalities, going to OR and other pertinent info. @ -Discharged. 53-year-old male presented to the ER with a chief complaint of right knee injury. History and physical exam completed. Vitals stable. Patient no signs of acute distress and nontoxic-appearing. Exam remarkable for limited active flexion due to pain in posterior knee and hamstrings. Right lower extremity neurovascular intact. No erythema, bruising or rashes present. There was focal tenderness to posterior hamstrings concerning of a tear. X-rays obtained to rule out osseous process. Patient received by mouth Tylenol for pain control in the ER. X-rays negative for acute process. Upon reevaluation patient resting comfortably in stretcher no signs of acute distress. Patient reporting pain is tolerable at this time. Results discussed with patient, all questions answered. Advise close follow-up with orthopedics, referral given. Patient presented to the ER wearing a hinged knee brace and would like to continue wearing that and refused knee immobilizer. Crutches given. T3 starter pack given for extreme pain. Return parameters discussed. Patient discharged stable condition with follow-up to orthopedics. Patient verbally expressed understanding and agreement with care plan. Case discussed with ED attending, Dr. Melgar. Undiagnosed new problem with uncertain prognosis? @ -No Drug Therapy requiring intensive monitoring for toxicity (Heparin, Nitro, Insulin, Cardizem)? @ -No Were any procedures done? @ -No Diagnosis/symptom? @ -Hamstring strain/knee sprain Acute, or Chronic, or Acute on Chronic? @ -Acute Uncomplicated (without systemic symptoms) or Complicated (systemic symptoms)? @ -Uncomplicated Side effects of treatment? @ -No Exacerbation, Progression, or Severe Exacerbation? @ -No Poses a threat to life or bodily function? How? (Chest pain, [place], AR, pneumonia, PE, COPD, DKA, ARF, appy, cholecystitis, CVA, Diverticulitis, Homicidal, Suicidal, threat to staff... and all critical care pts) @ -No - Radiology Data Radiology results: report reviewed, image reviewed Disposition Clinical Impression: Knee sprain, Hamstring strain Disposition: HOME SELF-CARE Condition: Stable Instructions (If sedation given, give patient instructions): Knee Sprain (ED) Additional Instructions: Please follow-up with orthopedics in the next 1 to 2 days. Please alternate Tylenol threes for extreme pain only. Return to the ER if any new or worsening concerns. Is patient prescribed a controlled substance at d/c from ED?: No Referrals: [facility],Clinic [Primary Care Provider] - 1-2 days Luis Daniel Sandoval DO [Doctor of Osteopathic Medicine] - 1-2 days Time of Disposition: 21:34
--- NOTE | 2024-01-10 20:38 | XR ---
EXAMINATION TYPE: XR knee complete RT DATE OF EXAM: 01/10/2024 8:32 PM CLINICAL INDICATION:Male, 53 years old with history of pain s/p fall; [facility] COMPARISON: None. TECHNIQUE: The Right knee(s) was examined in Frontal, lateral and oblique projections. FINDINGS: No evidence of any acute osseous pathology, soft tissue swelling, or joint effusion is no jose martin. IMPRESSION: No acute osseous pathology.
[2024-01-10] MEDS: ACETAMINOPHEN TAB 325 MG TAB PO STA (21:05)
[2024-01-10] MEDS: ACET/COD 300 MG/30 MG STARTER PACK 6 TAB BTL PO STA (22:03)
[2024-01-10 22:12] VITALS: BP 153/97; PULSE 75; RESP 16; TEMP 98.1
== END 2024-01-10 22:15 | disposition home or self-care (01) ==
LOC: EC 19:48
DX: S83.91XA Sprain of unspecified site of right knee, initial encounter (principal); S76.311A Strain of muscle, fascia and tendon of the posterior muscle group at thigh level, right thigh, initial encounter; Z88.1 Allergy status to other antibiotic agents; Z88.2 Allergy status to sulfonamides; W01.0XXA Fall on same level from slipping, tripping and stumbling without subsequent striking against object, initial encounter
CPT/HCPCS: 99283

== ENCOUNTER → 2025-02-02 | Outpatient (CLI) | payer OTHER ==
--- NOTE | 2025-02-06 11:37 | MR ---
MR knee RT wo con DATE OF EXAM: 02/02/2025 6:35 PM COMPARISON: Right knee radiographs 01/28/2025.. CLINICAL INDICATION: Male, 54 years old with history of M25.561 RIGHT KNEE PAIN; [facility], right knee pain for 3 months, no known injury. TECHNIQUE: Noncontrast multiplanar, multiecho imaging of the right knee was performed, including T1-w eighted and fluid sensitive sequences. FINDINGS: Medial meniscus: Complex tear of the body and posterior horn with extension into the root. Meniscal extrusion. Lateral meniscus: Intact. Intermediate signal of the free edge of the body, likely on a degenerative basis. ACL: Intact. PCL: Intact. MCL: Intact. Periligamentous edema favored related to meniscal pathology. However a low-grade sprain cannot be definitively excluded. Lateral ligaments and tendons: Intact. Extensor mechanism: The quadriceps and patellar tendons are intact. Fat pads: Preserved. Articular cartilage: Patellofemoral compartment: Mild scattered surface irregularity. Single full-thickness fissure in th e medial patellar facet with tiny subchondral cyst. Medial compartment: Tibial plateau is nearly devoid of cartilage, especially peripherally. Multifoca l full-thickness defects of the weightbearing femoral articular surface. Scattered subchondral cysts with mild adjacent reactive edema-like marrow changes of both the femoral condyle and tibial plateau. Lateral compartment: Some surface irregularity and partial-thickness fissuring, no full-thickness def ect. Bone marrow: No acute fracture. No suspicious osseous lesion or marrow replacing process. Muscles: No muscle atrophy or acute muscle injury. Other soft tissues: Trace joint effusion. IMPRESSION: 1. Complex medial meniscal tear involving the body and posterior horn with meniscal extrusion. 2. Medial compartment predominant high-grade chondrosis. [facility], , 02/06/2025 11:34 AM
== END | disposition home or self-care (01) ==
LOC: RADMRIMAIN 17:32
PROVIDERS: ATTEND Orthopaedic Surgery
DX: M23.322 Other meniscus derangements, posterior horn of medial meniscus, left knee (principal); M94.261 Chondromalacia, right knee

== ENCOUNTER → 2025-02-09 | Outpatient (CLI) | payer OTHER ==
[2025-02-10 02:15] LABS: Basophils # (A) 0.11 X 10*3/uL (0.00-0.10); Basophils % (A) 1.1 %; Eosinophils # (A) 0.41 X 10*3/uL (0.04-0.35); Eosinophils % (A) 4.0 %; HCT 47.2 % (39.6-50.0); HGB 15.7 g/dL (13.0-17.0); Immature Grans, Automated 0.80 %; Lymphocytes # (A) 2.80 X 10*3/uL (0.90-5.00); Lymphocytes % (A) 27.0 %; MCH 28.3 pg (27.0-32.0); MCHC 33.3 g/dL (32.0-37.0); MCV 85.2 FL (80.0-97.0); Monocytes # (A) 1.30 X 10*3/uL (0.20-1.00); Monocytes % (A) 12.5 %; NRBC Per 100 WBC 0 X 10*3/uL (0.00-0.01); Neutrophils # (A) 5.67 X 10*3/uL (1.80-7.70); Neutrophils % (A) 54.6 %; Platelet Count 295 X 10*3/uL (140-440); RBC 5.54 X 10*6/uL (4.40-5.60); RDW 12.1 % (11.5-14.5); WBC 10.37 X 10*3/uL (4.50-10.00)
[2025-02-10 02:45] LABS: Anion Gap 11.20 mmol/L (4.00-12.00); BUN/Creat Ratio 26.67 Ratio (12.00-20.00); Blood Urea Nitrogen 24.0 mg/dL (9.0-27.0); Calcium 9.7 mg/dL (8.7-10.3); Carbon Dioxide 25.8 mmol/L (21.6-31.8); Chloride 100 mmol/L (96-109); Glucose 95 mg/dL (70-110); Potassium 4.1 mmol/L (3.5-5.5); Sodium 137 mmol/L (135-145)
== END | disposition home or self-care (01) ==
LOC: LABPAT 15:41
PROVIDERS: ATTEND Orthopaedic Surgery
DX: Z01.812 Encounter for preprocedural laboratory examination (principal); M23.91 Unspecified internal derangement of right knee
CPT/HCPCS: 80048; 85025

== ENCOUNTER 2025-02-17 11:05 | Day surgery (SDC) | payer OTHER ==
--- NOTE | 2025-02-16 08:01 | P.HPOR ---
History of Present Illness H&P Date: 02/16/25 Chief Complaint: Right knee pain The patient is a 55-year-old male who presents with progressive right knee pain for the past 3 months. He notes medial pain along with giving way. His symptoms have been worsening despite conservative measures. Review of Systems Per HPI Past Medical History Past Medical History: Diabetes Mellitus, Hypertension, Osteoarthritis (OA), Sleep Apnea/CPAP/BIPAP Additional Past Medical History / Comment(s): uses CPAP History of Any Multi-Drug Resistant Organisms: None Reported Past Surgical History: Orthopedic Surgery, Tonsillectomy Additional Past Surgical History / Comment(s): LT CHEST BENIGN MASS REMOVED, I&D of abdominal soft tissue abscesses, left knee arthroscopy, removal lipoma right shoulder Past Anesthesia/Blood Transfusion Reactions: No Reported Reaction, Motion Sickness Smoking Status: Never smoker - Past Family History Father Additional Family Medical History / Comment(s): FROM LUNG DISEASE Mother Family Medical History: Cancer Additional Family Medical History / Comment(s): -LEUKEMIA Sister(s) Family Medical History: Cancer Additional Family Medical History / Comment(s): BREAST CANCER Medications and Allergies Home Medications Medication Instructions Recorded Confirmed Type Multivitamins, Thera [Multivitamin 1 tab PO DAILY 02/08/22 02/12/25 History (formulary)] lisinopriL [Prinivil] 10 mg PO QAM 02/08/22 02/12/25 History Empagliflozin [Jardiance] 25 mg PO DAILY 02/12/25 02/12/25 History Semaglutide [Ozempic] 0.5 mg SQ MO 02/12/25 02/12/25 History metFORMIN HCL [Glucophage] 500 mg PO BID 02/12/25 02/12/25 History Allergies Allergy/AdvReac Type Severity Reaction Status Date / Time sulfamethoxazole Allergy Rash/Hives/ Verified 02/12/25 12:31 [From Bactrim] itching trimethoprim [From Bactrim] Allergy Rash/Hives Verified 02/12/25 12:31 Physical Examination - Knee right Appearance: effusion Effusion grade: grade 2 Tenderness with palpation: anterior, medial Pain: throughout ROM Gait: limping ROM: extension: -15 degrees ROM: flexion: 120 degrees Crepitus with motion: Yes Strength: extension: 5/5 Strength: flexion: 5/5 Meniscal tests: medial meniscal tests: positive, medial joint line pain: positive Results The patient is a well-developed well-nourished male approximately 6 foot tall, 252 pounds of endomorphic habitus. HEENT exam is nonfocal, neck is supple. He has painless passive motion of the right hip. Straight leg raise is negative. He is tender about the medial joint line of the right knee. Collaterals are stable, Flavia's negative, Yecenia's elicits medial pain. His distal neurovascular exam appears intact in the right lower extremity. - Diagnostic results Knee MRI: image reviewed (MRI report right knee shows evidence of a posterior medial meniscal tear.) Assessment and Plan Assessment: Right knee internal derangementsymptomatic medial meniscal tear Right knee medial compartment osteoarthrosis Plan: I talked to the patient at length regarding his condition along with treatment options. At this point he is quite symptomatic having pain and mechanical symptoms despite conservative measures. After a thorough discussion he opts to proceed with surgery. We will plan to proceed with right knee arthroscopy with probable partial medial meniscectomy. Risks and benefits were discussed at length in layman's terms. We will likely perform that as an outpatient procedure.
[~2025-02-17 11:05] MED LIST changes: +ACETAMINOPHEN TAB 500 MG TAB PO PRN; -DEXAMETHASONE SOD PHOSPHATE 4 MG/ML 1 ML VIAL IV ONE; -IV FLUID CONTINUATION 1,000 ML IV ONE; -KETAMINE 10 MG/ML 20 ML VIAL ONE; -KETOROLAC 15 MG/ML 1 ML VIAL ONE; -LACTATED RINGERS 1,000 ML IV SCH; -LIDOCAINE 1% (10MG/ML) FOR IV START INTRADERMA PRN; -LIDOCAINE 2% INJ 20 MG/ML (2 ML VIAL) ONE; +MELOXICAM 7.5 MG TAB PO PRN; -MIDAZOLAM 2 MG/2 ML VIAL ONE; -ONDANSETRON 4 MG/2 ML VIAL IVP ONE; -PROPOFOL 10 MG/ML 20 ML VIAL IV ONE; +Pre Op ABX Message 1 EACH MISC MISCELLANE ONE; +TRANEXAMIC 1,000 MG/100ML-NACL 1,000 MG in SALINE 1 100ML.BAG IVPB PRN; -fentaNYL (PF) 50 MCG/ML 2 ML AMP ONE
[2025-02-17] MEDS ORDERED: SCOPOLAMINE 1 MG/72 HR PATCH TRANSDERM ONE (11:26)
[2025-02-17] MEDS ORDERED: MIDAZOLAM 2 MG/2 ML VIAL IV PRN (11:26)
[2025-02-17] MEDS: IV FLUID CONTINUATION 1,000 ML IV ONE (11:40)
[2025-02-17] MEDS: ONDANSETRON 4 MG/2 ML VIAL IVP ONE (12:17)
[2025-02-17] MEDS: LACTATED RINGERS 1,000 ML IV SCH (12:17)
[2025-02-17] MEDS: DEXAMETHASONE SOD PHOSPHATE 4 MG/ML 1 ML VIAL IV ONE (12:17)
[2025-02-17 12:23] LABS: Glucose,Whole Blood 112 mg/dL (70-110)
[2025-02-17] MEDS ORDERED: LABETALOL 5 MG/ML VIAL MDV ONE (12:26)
[2025-02-17] MEDS ORDERED: fentaNYL (PF) 50 MCG/ML 2 ML AMP ONE (12:26)
[2025-02-17] MEDS ORDERED: MIDAZOLAM 2 MG/2 ML VIAL ONE (12:26)
[2025-02-17] MEDS: SODIUM CHLORIDE 0.9% 100 ML with ceFAZolin 2,000 MG IV ONE (12:26)
[2025-02-17] MEDS ORDERED: LIDOCAINE 1% INJ 10MG/ML (20 ML MDV) ONE (12:26)
[2025-02-17] MEDS ORDERED: LIDOCAINE 4% LTA KIT (4 ML) TOPICAL ONE (12:26)
[2025-02-17] MEDS ORDERED: SUCCINYLCHOLINE CHLORIDE 200 MG/10 ML VIAL IV ONE (12:26)
[2025-02-17] MEDS ORDERED: PROPOFOL 10 MG/ML 20 ML VIAL IV ONE (12:26)
--- NOTE | 2025-02-17 13:17 | P.OP ---
Date of Procedure: 02/17/25 Preoperative Diagnosis: Right knee internal derangement Postoperative Diagnosis: Right knee posterior medial meniscal tear Procedure(s) Performed: Right knee arthroscopic partial medial meniscectomy Anesthesia: OKSANAA Surgeon: Joaquin Barcenas Estimated Blood Loss (ml): 10 Pathology: none sent Condition: stable Disposition: PACU Indications for Procedure: The patient is a 55-year-old male who presents with progressive right knee pain and mechanical symptoms despite conservative measures. A discussion of the risks and benefits of operative intervention versus continued conservative measures was made with the patient. He opted to proceed with surgery. Operative risks include infection, neurovascular injury, development of blood clots, possible incomplete resolution of symptoms, possible worsening symptoms and need for subsequent procedures was discussed. Informed consent was obtained. Operative Findings: As below Description of Procedure: The patient was brought to the operating room, and after induction of general anesthesia examined the right knee. Collaterals were stable, Flavia was negative, and posterior drawer was negative. The right lower extremity was prepped and draped in a normal fashion. A superior lateral portal was made through a 3 mm skin incision superior and lateral to the patella. This was used for outflow. A lateral portal was made through a 5 mm vertical skin incision lateral to the patella tendon above the joint line. Diagnostic arthroscopy was performed. On inspection of the medial compartment, a complex macerated tear involve the posterior horn of the medial meniscus in the whitered junction was noted. This was debrided back to stable base with straight baskets and a motorized shaver. The remaining medial meniscus was stable and intact. Grade 3/4 chondral changes are noted in the posterior medial tibial plateau. On inspection of the notch, the anterior cruciate ligament appeared to be intact. On inspection of the lateral compartment, no significant meniscal pathology was noted. On inspection of the patellofemoral articulation grade 2-3 chondral changes were noted diffusely. The gutters were clear debris. The knee was then thoroughly irrigated. The portals were closed with Steri-Strips. A sterile dressing was applied in addition to a compression stocking. The patient was awoken from general anesthesia and transferred to recovery room in good co ndition. Blood loss was estimated at 10 mL. No complications were incurred.
[2025-02-17 13:28] VITALS: TEMP 97.3
[2025-02-17] MEDS: HYDROmorphone 0.5 MG/0.5 ML SYRINGE IVP PRN (13:39)
[2025-02-17 14:14] LABS: Glucose,Whole Blood 122 mg/dL (70-110)
[2025-02-17 14:51] VITALS: BP 126/83; PULSE 74; RESP 14
== END 2025-02-17 14:57 | disposition home or self-care (01) ==
LOC: OR 11:05
PROVIDERS: ATTEND Orthopaedic Surgery
DX: S83.241A Other tear of medial meniscus, current injury, right knee, initial encounter (principal); M23.91 Unspecified internal derangement of right knee; M17.11 Unilateral primary osteoarthritis, right knee; E11.9 Type 2 diabetes mellitus without complications; I10 Essential (primary) hypertension; G47.33 Obstructive sleep apnea (adult) (pediatric); Z90.89 Acquired absence of other organs; Z80.3 Family history of malignant neoplasm of breast; Z88.1 Allergy status to other antibiotic agents; Z88.2 Allergy status to sulfonamides; Z79.84 Long term (current) use of oral hypoglycemic drugs; Z79.899 Other long term (current) drug therapy; X58.XXXA Exposure to other specified factors, initial encounter
CPT/HCPCS: 29881; J2250; J0330; J1100; J2405; J0690; J2003; J3010; J2704; J1171; J1920